=== PATIENT | male | born 1945 | race African-American/Black ===

== ENCOUNTER 2016-09-24 10:35 | Emergency (ER) | payer MEDICARE, OTHER ==
[~2016-09-24] VITALS: Ht 172.7 cm; Wt 78.0 kg
[~2016-09-24 10:35] MED LIST: ASPI81TA2 PO; ATEN25TA PO; BENA5TAB2 PO; HYDR12.5 PO
[2016-09-24] MEDS ORDERED: IV NS 0.9% 1,000 ML ONE (11:14)
[2016-09-24] MEDS ORDERED: IV SET PRIMARY 1 EA INFUS.SET MC ONE (11:14)
[2016-09-24 11:17] LABS: BASOPHILS % (AUTO) 0.6 % (0.0-2.0); DIFF TOTAL % 100 %; EOSINOPHILS # (AUTO) 0.2 /CMM (0.0-0.7); EOSINOPHILS % (AUTO) 5.3 % (0.0-6.0); HEMATOCRIT 47 % (39-51); HEMOGLOBIN 15.8 g/dL (13.5-17.5); LYMPHOCYTES # (AUTO) 0.8 /CMM (0.8-4.8); LYMPHOCYTES % (AUTO) 20.2 % (20.0-44.0); MEAN CORPUSCULAR HEMOGLOBIN 31 PG (26.0-33.0); MEAN CORPUSCULAR HGB CONC 34 g/dl (31.0-36.0); MEAN CORPUSCULAR VOLUME 93 fL (80-96); MONOCYTES # (AUTO) 0.4 /CMM (0.1-1.30); MONOCYTES % (AUTO) 9.2 % (2.0-12.0); NEUTROPHILS # (AUTO) 2.5 /CMM (1.8-8.9); NEUTROPHILS % (AUTO) 64.7 % (43.0-81.0); PLATELET COUNT (AUTO) 193 /CMM (150-450); RED BLOOD CELL COUNT(AUTO) 5.07 MIL/uL (4.5-6.0); WHITE BLOOD COUNT (AUTO) 3.9 K/uL (4.3-11.0)
[2016-09-24 11:19] LABS: KETONES,URINE Negative (NEGATIVE); LEUKOCYTE ESTERASE ,URINE Negative (NEGATIVE)
[2016-09-24 11:21] LABS: ADD UA MICROSCOPIC YES
[2016-09-24 11:26] LABS: ANION GAP 10 (5-14); CALCIUM, SERUM 8.8 mg/dL (8.5-10.1); CARBON DIOXIDE 30 mmol/L (21-32); CHLORIDE 105 mmol/L (98-107); CREATININE 1.1 mg/dL (0.6-1.3); GLUCOSE 126 mg/dL (74-106); POTASSIUM 3.8 mmol/L (3.5-5.1); SODIUM SERUM 142 mmol/L (136-145); UREA NITROGEN, BLOOD 16 mg/dL (7-18)
[2016-09-24 11:30] LABS: ADD URINE CULTURE NO; RBC,URINE 0-2 /HPF (0-2); WBC,URINE 0-2 /HPF (0-3)
[2016-09-24] MEDS ORDERED: IV NS 0.9% 1,000 ML BAG IV ONE (11:30)
[2016-09-24 11:33] LABS: ALANINE AMINOTRANSFERASE 32 U/L (12-78); ALBUMIN 3.9 g/dL (3.4-5.0); ASPARTATE AMINOTRANSFERASE 35 U/L (15-37); BILIRUBIN,DIRECT 0.1 mg/dL (0.0-0.2); BILIRUBIN,TOTAL 0.6 mg/dL (0.2-1.0); TOTAL PROTEIN, SERUM 7.4 g/dL (6.4-8.2)
[2016-09-24 11:34] LABS: TROPONIN I < 0.017 ng/mL (0.00-0.056)
[2016-09-24 11:35] LABS: INDIRECT BILIRUBIN 0.5 mg/dL (0.0-1.1)
[2016-09-24 13:35] VITALS: BP 132/82
== END 2016-09-24 13:36 | disposition home or self-care (01) ==
LOC: ER 10:37
DX: I49.3 Ventricular premature depolarization (principal); E86.0 Dehydration; R42 Dizziness and giddiness; I10 Essential (primary) hypertension; Z79.82 Long term (current) use of aspirin; Z86.73 Personal history of transient ischemic attack (TIA), and cerebral infarction without residual deficits
CPT/HCPCS: 36415; 71010; 80048; 80076; 81001; 83690; 83735; 84484; 85025; 93005; 96360; 99285; A4606; J7030; 81000-TC; Z7610

== ENCOUNTER 2016-12-02 00:19 | Emergency (ER) | payer MEDICARE, OTHER ==
[~2016-12-02] VITALS: Ht 172.7 cm; Wt 78.0 kg
[2016-12-02 00:29] VITALS: BP 135/95
--- NOTE | 2016-12-02 00:50 | NUR ---
CLEO CHRISTOPHER MD AT BED SIDE FOR EVAL
[2016-12-02] MEDS ORDERED: PSEUDOEPHEDRINE HCL 30 MG TABLET PO ONE (01:00)
[2016-12-02] MEDS ORDERED: PSEUDOEPHEDRINE HCL 30 MG TABLET ONE (01:08)
== END 2016-12-02 01:30 | disposition home or self-care (01) ==
LOC: ER 00:21
DX: J06.9 Acute upper respiratory infection, unspecified (principal); R07.89 Other chest pain; R60.1 Generalized edema; I10 Essential (primary) hypertension; Z86.73 Personal history of transient ischemic attack (TIA), and cerebral infarction without residual deficits; Z79.82 Long term (current) use of aspirin
CPT/HCPCS: A4606; Z7610

== ENCOUNTER 2017-08-17 23:32 | Emergency (ER) | payer MEDICARE, MEDICAID ==
[~2017-08-17] VITALS: Ht 172.7 cm; Wt 78.0 kg
[~2017-08-17 23:32] MED LIST changes: +ASPI-1169 PO; -ASPI81TA2 PO
--- NOTE | 2017-08-18 00:09 | NUR ---
PT AMBULATORY TO ER BED 6. PT BIB SELF C/O COUGH/CONGESTION X 3 DAYS. PT PLACED ON INCIDENT RESPONSE SPECIALIST. VSS/RESP EVEN UNLABORED/NAD NOTED/SKIN WARM AND DRY/DENIES N-V-D/AOX4. AWAITING MD DEVRIES.
--- NOTE | 2017-08-18 00:38 | NUR ---
XRAY AT BEDSIDE.
--- NOTE | 2017-08-18 01:15 | NUR ---
AT BEDSIDE SPEAKING WITH PT.
--- NOTE | 2017-08-18 01:28 | NUR ---
Patient discharged to home in stable condition. Written and verbal after care instructions given. Patient verbalizes understanding of instruction. Patient ambulatory with a steady gait.
[2017-08-18 01:29] VITALS: BP 137/83
== END 2017-08-18 01:29 | disposition home or self-care (01) ==
LOC: ER 23:39
DX: J06.9 Acute upper respiratory infection, unspecified (principal); I10 Essential (primary) hypertension; Z86.73 Personal history of transient ischemic attack (TIA), and cerebral infarction without residual deficits; Z79.82 Long term (current) use of aspirin
CPT/HCPCS: 71045; 99283; A4606; Z7610

== ENCOUNTER 2017-10-10 17:39 | Inpatient (IN) | payer MEDICAID, MEDICARE ==
[~2017-10-10] VITALS: Ht 177.8 cm; Wt 78.9 kg
[~2017-10-10 17:39] MED LIST changes: -BENA5TAB2 PO; +BENA5TAB5 PO
--- NOTE | 2017-10-10 17:40 | NUR ---
PT CALLED TO [facility], PT NOT IN WAITING ROOM
--- NOTE | 2017-10-10 17:40 | NUR ---
Weakness and blurry vision x 2 hours PASTORAL COUNSELOR, nad noted, vss, resp even and unlabored, pt was put on monitor and hospital md varghese at bs.
[2017-10-10 18:27] LABS: BASOPHILS # (AUTO) 0.2 /CMM (0.0-0.2); BASOPHILS % (AUTO) 4.2 % (0.0-2.0); EOSINOPHILS % (AUTO) 2.6 % (0.0-6.0); HEMATOCRIT 50 % (39-51); LYMPHOCYTES % (AUTO) 22.2 % (20.0-44.0); MEAN CORPUSCULAR HGB CONC 34 g/dl (31.0-36.0); MEAN CORPUSCULAR VOLUME 92 fL (80-96); MONOCYTES # (AUTO) 0.4 /CMM (0.1-1.30); MONOCYTES % (AUTO) 9.5 % (2.0-12.0); NEUTROPHILS # (AUTO) 2.8 /CMM (1.8-8.9); NEUTROPHILS % (AUTO) 61.5 % (43.0-81.0); PLATELET COUNT (AUTO) 228 /CMM (150-450); RDW COEFFICIENT OF VARIATION 13.1 (11.5-15.0); RED BLOOD CELL COUNT(AUTO) 5.36 MIL/uL (4.5-6.0); WHITE BLOOD COUNT (AUTO) 4.5 K/uL (4.3-11.0)
--- NOTE | 2017-10-10 18:27 | NUR ---
IV INSERTED, LAC 16 GAUGE, BLOOD DRAWN, URINE COLLECTED, SENT TO LAB.
[2017-10-10] MEDS ORDERED: IV NS 0.9% 500 ML BAG IV ONE (18:30)
[2017-10-10] MEDS ORDERED: CARV3.122 PO (18:31)
[2017-10-10] MEDS ORDERED: BENA20TA9 PO (18:31)
[2017-10-10] MEDS ORDERED: FOLI1TAB16 PO (18:31)
[2017-10-10] MEDS ORDERED: CHOL100044 PO (18:31)
[2017-10-10] MEDS ORDERED: SULI150T PO (18:31)
[2017-10-10] MEDS ORDERED: SIMV20TA6 PO (18:31)
[2017-10-10] MEDS ORDERED: AMLO10TA6 PO (18:31)
[2017-10-10] MEDS ORDERED: OXYB10TA PO (18:31)
[2017-10-10 18:39] LABS: CALCIUM, SERUM 9.8 mg/dL (8.5-10.1); CARBON DIOXIDE 28 mmol/L (21-32); CHLORIDE 101 mmol/L (98-107); CREATININE 1.7 mg/dL (0.6-1.3); GLUCOSE 130 mg/dL (74-106); POTASSIUM 3.7 mmol/L (3.5-5.1); SODIUM SERUM 139 mmol/L (136-145); UREA NITROGEN, BLOOD 10 mg/dL (7-18)
[2017-10-10 18:39] LABS: APPEARANCE,URINE Clear (CLEAR); BILIRUBIN,URINE Negative (NEGATIVE); BLOOD, URINE Trace-lysed Ery/uL (NEGATIVE); COLOR,URINE Yellow (YELLOW); KETONES,URINE Negative (NEGATIVE); LEUKOCYTE ESTERASE ,URINE Negative (NEGATIVE); NITRITE, URINE Negative (NEGATIVE); PH,URINE 8.5 (5.0-8.0); PROTEIN,URINE 30 mg/dl (NEGATIVE); UGLUCOSE Negative (NEGATIVE); UROBILINOGEN,URINE 0.2 EU/dL (0.2)
[2017-10-10 18:44] LABS: ALANINE AMINOTRANSFERASE 33 U/L (12-78); ALBUMIN 4.1 g/dL (3.4-5.0); ALKALINE PHOSPHATASE 98 U/L (46-116); ASPARTATE AMINOTRANSFERASE 25 U/L (15-37); BILIRUBIN,DIRECT 0.2 mg/dL (0.0-0.2); BILIRUBIN,TOTAL 0.7 mg/dL (0.2-1.0)
[2017-10-10 18:47] LABS: TROPONIN I < 0.017 ng/mL (0.00-0.056)
--- NOTE | 2017-10-10 18:50 | NUR ---
PT TO CTSCAN.
[2017-10-10 18:57] LABS: BACTERIA,URINE Few /HPF (None Seen); SQUAMOUS EPITHELIAL CELL,UR Few /HPF (None Seen); URINE AMORPHOUS URATE Rare /HPF (None Seen)
[2017-10-10 18:58] LABS: MUCUS,URINE Few /LPF (None Seen)
--- NOTE | 2017-10-10 19:02 | NUR ---
PT REFUSING CXR1V, PT NOT HAVING DIFFICULTY BREATHING OR CP, CONCERNED ABOUT UNNECESSARY RADIATION EXPOSURE. KAYLA 190
--- NOTE | 2017-10-10 20:55 | NUR ---
PT REFUSED CXR AT THIS TIME. RISK AND BENEFITS EXPLAINED X3. PT STRONGLY REFUSED. DR. CHRISTOPHER MADE AWARE
[2017-10-10] MEDS ORDERED: Z GUARD REMEDY 2 OZ OINT TP PRN (21:30)
[2017-10-10] MEDS ORDERED: ONDANSETRON HCL/PF 4 MG/2 ML VIAL IVP PRN (21:30)
[2017-10-10 21:40] VITALS: BP 133/77
[2017-10-10] MEDS: IV NS 0.9% 1,000 ML IV PRN (21:42)
--- NOTE | 2017-10-10 22:52 | NUR ---
RN NOTES RECEIVE PT FROM [facility]IA [facility] AT 2120, PT A/O X 4, PT HAS A CANE CAN ABLE TO WALK TO THE TOILET. HEAD TO TOE ASSESSMENT IS DONE SKIN IS INTACT, NO COMPLAINS OF CHEST PAIN. NO S/S OF DISTRESS, STABLE, SAFETY MEASURES IN PLACE, CALL LIGHT WITHIN REACH, WILL CONTINUE TO MONITOR.
--- NOTE | 2017-10-10 23:40 | NUR ---
PAGED HOSPITALIST SPOKE TO DR. CECY AKINS RELAYED CRITICAL LAB VALUE OF TROPONIN 1.[address] CECY AKINS START HEPARIN DRIP ACS AND EKG NOTED AND CARRIED OUT READ BACK AND VERIFIED ORDERS.
[2017-10-11] VITALS: BP 127/77
[2017-10-11] MEDS ORDERED: HEPARIN SODIUM, PORCINE 5000 UNITS/1 ML VIAL IV ONE (00:30)
--- NOTE | 2017-10-11 00:31 | NUR ---
STARTING BOLUS PER PROTOCOL
[2017-10-11] MEDS ORDERED: HEPARIN INFUSION/D5W 500 ML IV ONE (00:32)
[2017-10-11] MEDS: HEPARIN INFUSION/D5W 500 ML IV PRN (00:38)
--- NOTE | 2017-10-11 00:38 | NUR ---
STARTED HEPARIN DRIP PER PROTOCOL
[2017-10-11 04:24] VITALS: BP 124/69
--- NOTE | 2017-10-11 06:29 | NUR ---
CLIENT RENEWAL SPECIALIST NOTES ASLEEP COMFORTABLY IN BED AND EASILY AWAKEN, SEMI FOWLERS POSITION. NOT IN RESPIRATORY DISTRESS. TOLERATING ROOM AIR 98% STABLE CONDITION. A/O X4, NO COMPLAINS OF PAIN. AFEBRILE. NO ACUTE CHANGES THROUGHOUT THE SHIFT. PT KEPT CLEAN AND DRY AND COMFORT. NURSING CARE RENDERED. NEEDS ATTENDED AND ANTICIPATED. ON LOW BED TO ENSURE SAFETY, CALL LIGHT WITHIN REACH, WILL ENDORSE TO THE NEXT SHIFT CONTINUE PLAN OF CARE. PT ON TELE WITH READING OF SR 61'S WITH 1ST DEGREE AV BLOCK CECY AKINS, ACETYLENE TORCH OPERATOR MADE AWRE
[2017-10-11 06:33] LABS: BASOPHILS % (AUTO) 0.4 % (0.0-2.0); EOSINOPHILS % (AUTO) 4.7 % (0.0-6.0); HEMATOCRIT 42 % (39-51); HEMOGLOBIN 14.5 g/dL (13.5-17.5); LYMPHOCYTES # (AUTO) 1.4 /CMM (0.8-4.8); LYMPHOCYTES % (AUTO) 29.1 % (20.0-44.0); MEAN CORPUSCULAR HGB CONC 35 g/dl (31.0-36.0); MEAN CORPUSCULAR VOLUME 93 fL (80-96); MONOCYTES # (AUTO) 0.6 /CMM (0.1-1.30); MONOCYTES % (AUTO) 12.4 % (2.0-12.0); NEUTROPHILS # (AUTO) 2.5 /CMM (1.8-8.9); NEUTROPHILS % (AUTO) 53.4 % (43.0-81.0); PLATELET COUNT (AUTO) 185 /CMM (150-450); RED BLOOD CELL COUNT(AUTO) 4.53 MIL/uL (4.5-6.0); WHITE BLOOD COUNT (AUTO) 4.7 K/uL (4.3-11.0)
--- NOTE | 2017-10-11 06:40 | NUR ---
AWAITING APTT RESULT WILL ENDORSE TO THE NEXT SHIFT TO ADJUST HEPARIN DRIP PER PROTOCOL
[2017-10-11 06:52] LABS: ALANINE AMINOTRANSFERASE 26 U/L (12-78); ALBUMIN 3.2 g/dL (3.4-5.0); ALKALINE PHOSPHATASE 79 U/L (46-116); ASPARTATE AMINOTRANSFERASE 37 U/L (15-37); BILIRUBIN,TOTAL 0.6 mg/dL (0.2-1.0); CALCIUM, SERUM 8.4 mg/dL (8.5-10.1); CARBON DIOXIDE 29 mmol/L (21-32); CHLORIDE 107 mmol/L (98-107); GLUCOSE 79 mg/dL (74-106); PHOSPHORUS 7.9 mg/dL (2.5-4.9); POTASSIUM 3.4 mmol/L (3.5-5.1); SODIUM SERUM 144 mmol/L (136-145); TOTAL PROTEIN, SERUM 6.3 g/dL (6.4-8.2); UREA NITROGEN, BLOOD 10 mg/dL (7-18)
[2017-10-11 06:57] LABS: CHOLESTEROL 112 mg/dL (<200); HDL CHOLESTEROL 51 mg/dL (40-60); LDL 72 mg/dL (0-99); THYROID STIMULATING HORMONE 0.915 uIU/mL (0.358-3.74); TRIGLYCERIDES 24 mg/dL (30-150)
[2017-10-11 07:27] LABS: INR 1.14 (0.87-1.13)
--- NOTE | 2017-10-11 08:00 | NUR ---
APTT IS 72. PER PROTOCOL,ADJUSTMENTS MADE FROM HEPARIN 1185 UNITS/HR (23.7 MLS/HR) TO 1085 UNITS/HR (21.7MLS/HR).CECY,PHARMACIST MADE AWARE.ORDERED PT-INR AND PTT AT 1400.NOTIFIED DR RICARDO FOR PT'S TROPONIN LEVEL OF 1.435 .
[2017-10-11 08:04] VITALS: BP 163/95
--- NOTE | 2017-10-11 08:05 | NUR ---
OFFICIAL COURT INTERPRETER OPENING NOTES RECEIVED PATIENT IN BED AWAKE, ALERT AND ORIENTED X 4 , ABLE TO MAKE NEEDS KNOWN, VERBALLY RESPONSIVE, IV ON LEFT AC INTACT AND PATENT, NO REDNESS NO INFILTRATION TO SITE. ON HEPARIN DRIP RUNNING ORDERED, IVF FLOWING PROPERLY ORDERED, ON SCREED OPERATOR 63 BPM.DENIES ANY COMPLAINTS OF PAIN AND DISCOMFORT THIS TIME.SAFETY MEASURE IN PLACE URINAL AT BEDSIDE, CALL LIGHT KEPT WITHIN REACH.
[2017-10-11] MEDS: BENAZEPRIL HCL 20 MG TABLET PO SCH ×2 (08:31→18:25)
[2017-10-11] MEDS: OXYBUTYNIN CHLORIDE ER 5 MG TAB PO SCH (08:31)
[2017-10-11] MEDS: FOLIC ACID 1 MG TABLET PO SCH (08:31)
[2017-10-11] MEDS: CHOLECALCIFEROL 1,000 UNIT TABLET (VIT D3) PO SCH (08:32)
[2017-10-11] MEDS: AMLODIPINE BESYLATE 10 MG TABLET PO SCH (08:32)
[2017-10-11] MEDS: CARVEDILOL 12.5 MG TABLET PO SCH ×2 (08:47→21:13)
[2017-10-11] MEDS ORDERED: ASPIRIN 81 MG TAB.CHEW PO SCH (09:00)
[2017-10-11] MEDS ORDERED: CARVEDILOL 3.125 MG TABLET PO SCH (09:00)
--- NOTE | 2017-10-11 09:00 | NUR ---
PT WAS BROUGHT DOWN FOR CT BRAIN WITH CONTRAST PROCEDURE WITH STABLE V/S.PT REMAINS NPO.FOR CT ANGIOGRAM LATER IN PM CONSENTS HAS BEEN SIGNED.
--- NOTE | 2017-10-11 10:00 | NUR ---
PT WAS BROUGHT BACK TO HIS ROOM POST CT BRAIN PROCEDURE.REMAINS ON NPO DENYING ANY PAIN OR DISTRESS.
[2017-10-11 12:00] VITALS: BP 122/83
[2017-10-11] MEDS ORDERED: POTASSIUM CHLORIDE 20 MEQ TAB.PRT.SR PO SCH (12:30)
[2017-10-11] MEDS: IV NS 0.9% 1,000 ML IV PRN (13:31)
[2017-10-11] MEDS: POTASSIUM CL. PREMIX PERIPHER. 50 ML IV SCH ×2 (13:32→15:39)
--- NOTE | 2017-10-11 13:49 | NUR ---
STARTED ADMINISTERING POTASSIUM IV FIRST BAG AND PT IS C/O IV DISCOMFORT ON RT AC.ADJUSTED POTASSIUM IV INFUSION ACCORDING TO PT'S COMFORT.
[2017-10-11 15:10] LABS: CREATININE 0.9 mg/dL (0.6-1.3)
[2017-10-11 15:35] LABS: INR 1.13 (0.87-1.13)
--- NOTE | 2017-10-11 15:48 | NUR ---
CHECKED PT'S LATEST PTT:47 PT 11.8 INR 1.13 NO CHANGE IN PRESENT INFUSION.
[2017-10-11] MEDS ORDERED: CLOPIDOGREL BISULFATE 75 MG TABLET PO ONE (16:30)
[2017-10-11 16:43] VITALS: BP 133/81
[2017-10-11] MEDS ORDERED: IOHEXOL-350 100 ML VIAL IV ONE (17:22)
[2017-10-11] MEDS ORDERED: IV NS 0.9% 250 ML IV ONE (17:22)
--- NOTE | 2017-10-11 17:30 | NUR ---
RN MS NOTES PATIENT NPO STATUS , PATIENT WAS PICKED UP FOR CT ANGIOGRAM PROCEDURE.
[2017-10-11] MEDS: SIMVASTATIN 20 MG TABLET PO SCH (18:23)
--- NOTE | 2017-10-11 18:43 | NUR ---
AUSTIN MS CLOSING NOTES, PATIENT BROUGHT BACK TO UNIT IN STABLE CONDITION AT 1812, AWAKE ALERT AND VERBALLY RESPONSIVE, ASSISTED TO BATHROOM, VITAL SIGNS TAKEN WITHIN NORMAL LIMITS, ON WIND UP OPERATOR 53BPM, NO SIGNS OR SYMPTOMS OF PAIN OR DISCOMFORT, NO COMPLAINTS OF CHEST PAIN, IV INTACT AND PATENT, ON HEPARIN DRIP INFUSING WELL PER PROTOCOL, PATIENT EATING TOLERATING WELL, FLUIDS OFFERED SAFETY MEASURES IN PLACE CALL LIGHT KEPT WITHIN REACH. 1842 PATIENT IN BED AWAKE ALERT AND RESPONSIVE, NO COMPLAINTS OF PAIN OR DISCOMFORT , SAFETY MEASURES IN PLACE, CALL LIGHT WITHIN REACH. Addendum: 10/11/17 at 1856 by ISAURO MIGUEL RN AUSTIN KENNEDY
--- NOTE | 2017-10-11 19:30 | NUR ---
RN NOTES RECEIVED PATIENT IN BED AWAKE, AO X 3, ABLE TO MAKE NEEDS KNOWN WITH CLEAR SPEECH. NO ACUTE DISTRESS NOTED. DENIES ANY PAIN AT THIS TIME. RIGHT SIDED WEAKNESS NOTED. TELE READING SINUS RHYTHM HR 66. PATIENT IV SITES PATENT, INTACT; HEPARIN DRIP INFUSING ORDERED (REVIEWED WITH OUTGOING NURSE); NF IVF INFUSING ORDERED. NO SIGNS OF BLEEDING NOTED. SAFETY REMINDERS GIVEN. STROKE EDUCATION GIVEN. PATIENT VERBALIZED UNDERSTANDING. ON LOW BED WITH BILATERAL UPPER SIDE RAILS UP. CALL ANDRADE WITHIN EASY REACH. WILL CONTINUE TO MONITOR.
[2017-10-11 20:00] VITALS: BP 146/89
[2017-10-11 22:48] LABS: INR 1.12 (0.87-1.13)
[2017-10-12] VITALS: BP 142/84
[2017-10-12] MEDS: HEPARIN INFUSION/D5W 500 ML IV PRN (02:14)
[2017-10-12] MEDS: ACETAMINOPHEN 325 MG TABLET PO PRN ×3 (02:19→22:15)
[2017-10-12] MEDS: IV NS 0.9% 1,000 ML IV PRN (02:20)
[2017-10-12 04:00] VITALS: BP_SYST 144; BP_DIAS 74; BP_DIAS 94
--- NOTE | 2017-10-12 06:00 | NUR ---
RN NOTES PATIENT ASLEEP, EASILY AROUSABLE. RESPIRATIONS EVEN. NO SIGNS OF PAIN NOTED. DUE MEDS GIVEN WITH NO ASE NOTED. NEEDS ATTENDED. SAFETY PRECAUTIONS AND COMFORT MEASURES IN PLACE. WILL GIVE REPORT TO DAY SHIFT FOR CONTINUITY OF CARE.
[2017-10-12 06:36] LABS: ALANINE AMINOTRANSFERASE 27 U/L (12-78); ALBUMIN 3.3 g/dL (3.4-5.0); ALKALINE PHOSPHATASE 82 U/L (46-116); BILIRUBIN,TOTAL 0.4 mg/dL (0.2-1.0); CALCIUM, SERUM 8.7 mg/dL (8.5-10.1); CARBON DIOXIDE 24 mmol/L (21-32); CHLORIDE 103 mmol/L (98-107); CREATININE 0.8 mg/dL (0.6-1.3); GLUCOSE 89 mg/dL (74-106); MAGNESIUM 2.7 mg/dL (1.8-2.4); PHOSPHORUS 3.7 mg/dL (2.5-4.9); SODIUM SERUM 138 mmol/L (136-145); TOTAL PROTEIN, SERUM 6.6 g/dL (6.4-8.2); UREA NITROGEN, BLOOD 10 mg/dL (7-18)
[2017-10-12 06:40] LABS: BASOPHILS % (AUTO) 0.7 % (0.0-2.0); EOSINOPHILS % (AUTO) 7.8 % (0.0-6.0); HEMATOCRIT 45 % (39-51); HEMOGLOBIN 15.4 g/dL (13.5-17.5); LYMPHOCYTES % (AUTO) 24.6 % (20.0-44.0); MEAN CORPUSCULAR HGB CONC 35 g/dl (31.0-36.0); MEAN CORPUSCULAR VOLUME 93 fL (80-96); MONOCYTES # (AUTO) 0.5 /CMM (0.1-1.30); MONOCYTES % (AUTO) 12.5 % (2.0-12.0); NEUTROPHILS # (AUTO) 2.3 /CMM (1.8-8.9); NEUTROPHILS % (AUTO) 54.4 % (43.0-81.0); PLATELET COUNT (AUTO) 195 /CMM (150-450); RDW COEFFICIENT OF VARIATION 13.4 (11.5-15.0); WHITE BLOOD COUNT (AUTO) 4.2 K/uL (4.3-11.0)
[2017-10-12 06:51] LABS: ASPARTATE AMINOTRANSFERASE 19 U/L (15-37)
[2017-10-12 06:52] LABS: INR 1.1 (0.87-1.13)
--- NOTE | 2017-10-12 07:10 | NUR ---
RN NOTES PT IS LAYING DOWN IN BED, RESTING COMFORTABLY. PT ON RA, RESPIRATIONS ARE EVEN AND UNLABORED. IV ON LAC INTACT AND SL, AND RAC INTACT AND RUNNING NS @ 100ML/HR AND HEPARIN DRIP, TITRATED ORDERED. SAFETY MEASURES ARE IN PLACE, CALL LIGHT IS IN REACH. WILL CONTINUE TO MONITOR.
[2017-10-12 08:00] VITALS: BP 140/93
[2017-10-12] MEDS: OXYBUTYNIN CHLORIDE ER 5 MG TAB PO SCH (08:21)
[2017-10-12] MEDS: CARVEDILOL 12.5 MG TABLET PO SCH ×2 (08:21→20:28)
[2017-10-12] MEDS: FOLIC ACID 1 MG TABLET PO SCH (08:21)
[2017-10-12] MEDS: BENAZEPRIL HCL 20 MG TABLET PO SCH ×2 (08:21→16:59)
[2017-10-12] MEDS: CLOPIDOGREL BISULFATE 75 MG TABLET PO SCH (08:21)
[2017-10-12] MEDS: AMLODIPINE BESYLATE 10 MG TABLET PO SCH (08:21)
[2017-10-12] MEDS: CHOLECALCIFEROL 1,000 UNIT TABLET (VIT D3) PO SCH (08:22)
[2017-10-12] MEDS: hydrALAZINE HCL 50 MG TABLET PO SCH ×3 (09:17→16:59)
[2017-10-12] MEDS: POTASSIUM CHLORIDE 20 MEQ TAB.PRT.SR PO SCH ×3 (09:17→11:07)
[2017-10-12 14:03] LABS: INR 1.1 (0.87-1.13)
[2017-10-12 16:00] VITALS: BP 137/79
[2017-10-12] MEDS: SIMVASTATIN 20 MG TABLET PO SCH (17:01)
--- NOTE | 2017-10-12 18:41 | NUR ---
RN NOTES PT IS SITTING UP IN BED, AWAKE AND ALERT. PT ON RA, RESPIRATIONS ARE EVEN AND UNLABORED, O2SAT 100%. IV ON RAC INTACT AND SL, PER PT REQUEST. ALL MEDS WERE GIVEN ORDERED AND PT NEEDS MET. SAFETY MEASURES ARE IN PLACE, CALL LIGHT IS IN REACH. WILL ENDORSE TO GAS PUMPING STATION SUPERVISOR RN FOR CONTINUITY OF CARE.
--- NOTE | 2017-10-12 19:15 | NUR ---
SHEAR SETTER NOTES: RECEIVED PT IN BED AND IS AWAKE AT THIS TIME. PT IS A/OX4. PT ON TELE BOX. PT HAS IV ON R AC #18G AND IS PATENT AND INTACT. PT TO BE CONNECTED TO IV FLUIDS AT NS AT 100ML/HR. CALL LIGHT WITHIN PT'S REACH. BED KEPT IN LOW, LOCKED POSITION, AND SIDE RAILS X 2UP. WILL CONTINUE TO MONITOR PT.
[2017-10-12 20:00] VITALS: BP 134/75
--- NOTE | 2017-10-12 22:16 | NUR ---
RN NOTES: PT COMPLAINING OF MILD HIP PAIN. PT WAS ADMINISTERED TYLENOL 650MG PO. WILL CONTINUE TO MONITOR PT.
[2017-10-13] VITALS: BP 101/70
[2017-10-13 04:00] VITALS: BP 135/87
[2017-10-13] MEDS: IV NS 0.9% 1,000 ML IV PRN (04:16)
--- NOTE | 2017-10-13 06:44 | NUR ---
CABLE TV INSTALLER CLOSING NOTES: ALL NEEDS WERE ATTENDED AND ANTICIPATED FOR. PT ON ROOM AIR AND TOLERATING WELL. PT ON TELE BOX AND READING SHOWS SR WITH FIRST DEGREE AVB WITH PVCS HR 64. PT HAS IV ON R A#18G AND IS BEING INFUSED WITH NS AT 100ML/HR. CALL LIGHT WITHIN PT'S REACH. BED KEPT IN LOW, LOCKED POSITION, AND SIDE RAILS X 2UP. WILL ENDORSE TO AM NURSE FOR DARREN.
[2017-10-13 06:57] LABS: BASOPHILS % (AUTO) 0.6 % (0.0-2.0); EOSINOPHILS % (AUTO) 6.2 % (0.0-6.0); HEMATOCRIT 45 % (39-51); HEMOGLOBIN 15.6 g/dL (13.5-17.5); LYMPHOCYTES # (AUTO) 0.9 /CMM (0.8-4.8); LYMPHOCYTES % (AUTO) 24.1 % (20.0-44.0); MEAN CORPUSCULAR HGB CONC 35 g/dl (31.0-36.0); MEAN CORPUSCULAR VOLUME 92 fL (80-96); MONOCYTES # (AUTO) 0.5 /CMM (0.1-1.30); MONOCYTES % (AUTO) 13.3 % (2.0-12.0); NEUTROPHILS % (AUTO) 55.8 % (43.0-81.0); PLATELET COUNT (AUTO) 202 /CMM (150-450); RDW COEFFICIENT OF VARIATION 13.4 (11.5-15.0); TROPONIN I 0.378 ng/mL (0.00-0.056); WHITE BLOOD COUNT (AUTO) 3.7 K/uL (4.3-11.0)
[2017-10-13 07:09] LABS: ALANINE AMINOTRANSFERASE 26 U/L (12-78); ALBUMIN 3.3 g/dL (3.4-5.0); ALKALINE PHOSPHATASE 80 U/L (46-116); ASPARTATE AMINOTRANSFERASE 25 U/L (15-37); BILIRUBIN,TOTAL 0.5 mg/dL (0.2-1.0); CALCIUM, SERUM 8.7 mg/dL (8.5-10.1); CARBON DIOXIDE 25 mmol/L (21-32); CHLORIDE 106 mmol/L (98-107); CREATININE 0.9 mg/dL (0.6-1.3); GLUCOSE 87 mg/dL (74-106); MAGNESIUM 1.8 mg/dL (1.8-2.4); PHOSPHORUS 3.4 mg/dL (2.5-4.9); POTASSIUM 3.5 mmol/L (3.5-5.1); SODIUM SERUM 140 mmol/L (136-145); TOTAL PROTEIN, SERUM 6.6 g/dL (6.4-8.2); UREA NITROGEN, BLOOD 9 mg/dL (7-18)
--- NOTE | 2017-10-13 07:15 | NUR ---
RN NOTES PT IS LAYING DOWN IN BED, SLEEPING COMFORTABLY. PT ON RA, RESPIRATIONS ARE EVEN AND UNLABORED. IV ON RAC INTACT AND RUNNING NS @ 100ML/HR. SAFETY MEASURES ARE IN PLACE, CALL LIGHT IS IN REACH. WILL CONTINUE TO MONITOR.
[2017-10-13 08:00] VITALS: BP 151/86
[2017-10-13] MEDS: hydrALAZINE HCL 50 MG TABLET PO SCH ×3 (08:06→16:51)
[2017-10-13] MEDS: BENAZEPRIL HCL 20 MG TABLET PO SCH ×2 (08:06→16:51)
[2017-10-13] MEDS: CLOPIDOGREL BISULFATE 75 MG TABLET PO SCH (08:06)
[2017-10-13] MEDS: OXYBUTYNIN CHLORIDE ER 5 MG TAB PO SCH (08:06)
[2017-10-13] MEDS: FOLIC ACID 1 MG TABLET PO SCH (08:06)
[2017-10-13] MEDS: CARVEDILOL 12.5 MG TABLET PO SCH ×2 (08:06→20:55)
[2017-10-13] MEDS: AMLODIPINE BESYLATE 10 MG TABLET PO SCH (08:06)
[2017-10-13] MEDS: CHOLECALCIFEROL 1,000 UNIT TABLET (VIT D3) PO SCH (08:07)
--- NOTE | 2017-10-13 10:00 | NUR ---
RN NOTES SPOKE WITH DR. RICARDO FOR PREPARATION TO HEART CATH IN THE AM. MD ORDERED D5NS @100ML/HR TO START AT MIDNIGHT. PT NPO EXCEPT MEDS AT MIDNIGHT. KEEP IV SITE. WILL ENDORSE TO STARCH FACTORY LABORER RN
[2017-10-13] MEDS: ACETAMINOPHEN 325 MG TABLET PO PRN ×2 (12:03→18:06)
[2017-10-13 16:00] VITALS: BP 127/70
[2017-10-13] MEDS: SIMVASTATIN 20 MG TABLET PO SCH (17:06)
--- NOTE | 2017-10-13 18:50 | NUR ---
RN NOTES PT IS SITTING UP IN BED, ALERT AND ORIENTED. PT ON RA, RESPIRATIONS ARE EVEN AND UNLABORED. IV ON ABDIAZIZ INTACT AND SL. ALL MEDS WERE GIVEN ORDERED AND PT NEEDS MET. SAFETY MEASURES ARE IN PLACE, CALL LIGHT IS IN REACH. WILL ENDORSE TO MEDICAL OFFICE RECEPTIONIST RN FOR CONTINUITY OF CARE.
--- NOTE | 2017-10-13 19:25 | NUR ---
RN OPENING NOTES: RECEIVED PT AND IS AWAKE AT THIS TIME. PT HAS ABDIAZIZ #20G AND IS PATENT AND INTACT. PT INFORMED THAT HE WILL BE NPO EXCEPT MEDS POST MIDNIGHT FOR CARDIAC CATH TO BE DONE TOMORROW. PT ON ROOM AIR AND TOLERATING WELL. CALL LIGHT WITHIN PT'S REACH. BED KEPT IN LOW, LOCKED POSITION, AND SIDE RAILS X 2UP. WILL CONTINUE TO MONITOR PT.
[2017-10-13 20:00] VITALS: BP 135/83
[2017-10-14] MEDS ORDERED: IV D5/ 0.9% NACL 1,000 ML IV ONE
--- NOTE | 2017-10-14 07:03 | NUR ---
RN NOTES: SPOKE WITH DELI ASSOCIATE VERONICA FROM [employer]. CARD ELVIA CANCELLED TODAY D/T MALFUNCTION IN LAB. ALSO SPOKE WITH [facility] DEVELOPMENT CONSULTANT. SHE SAID SHE WILL CONTACT DR. MALIK. DELI ASSOCIATE SAID TO FOLLOW UP AT 0930 AND CALL HER AT [phone]
--- NOTE | 2017-10-14 07:30 | NUR ---
MS RN CLOSING NOTES: ALL NEEDS WERE ATTENDED AND ANTICIPATED FOR. PT ON ROOM AIR AND TOLERATING WELL. PT HAS IV ON ABDIAZIZ #20G AND IS BEING INFUSED WITH D5/0.9%NACL AT 100ML/HR. CALL LIGHT WITHIN PT'S REACH. BED KEPT IN LOW, LOCKED POSITION, AND SIDE RAILS X 2UP. PT REMAINED NPO. ENDORSED TO AM NURSE FOR DARREN.
--- NOTE | 2017-10-14 07:36 | NUR ---
MS/RN OPENING NOTE PATIENT IN BED IN STABLE CONDITION. A/O X 4. NO SIGNS OF ACUTE DISTRESS. NO COMPLAIN OF PAIN OR DISCOMFORT. NPO EXCEPT MEDS SECONDARY TO CARDIAC CATH. PROCEDURE SCHEDULED. ALL NEEDS ATTENDED TO. CALL LIGHT WITH IN REACH. WILL CONTINUE TO MONITOR TO ENSURE SAFETY.
[2017-10-14 08:00] VITALS: BP 140/96
--- NOTE | 2017-10-14 08:30 | NUR ---
MS/RN PLAVIX HELD PLAVIX HELD SECONDARY TO PATIENT SCHEDULE FOR CARDIAC CATH PROCEDURE AT [facility]
[2017-10-14] MEDS: hydrALAZINE HCL 50 MG TABLET PO SCH ×3 (08:54→16:38)
[2017-10-14] MEDS: FOLIC ACID 1 MG TABLET PO SCH (08:54)
[2017-10-14] MEDS: CARVEDILOL 12.5 MG TABLET PO SCH ×2 (08:54→20:12)
[2017-10-14] MEDS: CHOLECALCIFEROL 1,000 UNIT TABLET (VIT D3) PO SCH (08:54)
[2017-10-14] MEDS: OXYBUTYNIN CHLORIDE ER 5 MG TAB PO SCH (08:55)
[2017-10-14] MEDS: CLOPIDOGREL BISULFATE 75 MG TABLET PO SCH (08:55)
[2017-10-14] MEDS: AMLODIPINE BESYLATE 10 MG TABLET PO SCH (08:55)
[2017-10-14] MEDS: BENAZEPRIL HCL 20 MG TABLET PO SCH ×2 (08:55→16:38)
--- NOTE | 2017-10-14 09:35 | NUR ---
MS/RN SEEN BY DR RICARDO PATIENT SEEN BY DR RICARDO. PER DR RICARDO, CARDIAC CATH. PROCEDURE IS CANCEL FOR TODAY, AND OKAY TO START DIET.
--- NOTE | 2017-10-14 13:00 | NUR ---
MS/E COMMERCE MARKETING MANAGER. CARDIAC CATH. PROCEDURE SCHEDULE FOR TOMORROW AT [facility] AT 1:30PM, P/U AT 11AM. NPO POST MIDNIGHT 10/15/17
[2017-10-14 16:00] VITALS: BP 126/62
[2017-10-14] MEDS: SIMVASTATIN 20 MG TABLET PO SCH (16:38)
--- NOTE | 2017-10-14 18:28 | NUR ---
MS/RN CLOSING NOTE PATIENT IN BED IN STABLE CONDITION . A/O X 4. NO SIGNS OF ACUTE DISTRESS. NO COMPLAIN OF PAIN OR DISCOMFORT. ALL NEEDS ATTENDED TO. CALL LIGHT WITHIN REACH. WILL ENDORSE TO NEXT SHIFT FOR CONTINUITY OF CARE.
--- NOTE | 2017-10-14 19:15 | NUR ---
MS RN OPENING NOTES: RECEIVED PT IN BED. PT IS AWAKE. PT A/OX4. ON ROOM AIR AND TOLERATING WELL. NO S/S OF DISTRESS NOTED AT THIS TIME. PT INFORMED THAT CARD CATH IS TOMORROW AND HE WILL NPO POST MIDNIGHT. PT VERBALIZED UNDERSTANDING. PT HAS IV ON ABDIAZIZ #20G AND IS PATENT AND INTACT. CALL LIGHT WITHIN PT'S REACH. BED KEPT IN LOW, LOCKED POSITION, AND SIDE RAILS X 2UP. WILL CONTINUE TO MONITOR PT.
[2017-10-14 20:00] VITALS: BP 131/61
[2017-10-14 20:19] VITALS: BP 131/61
--- NOTE | 2017-10-14 22:03 | NUR ---
MS RN NOTES: INFORMED DR. AKINS THAT PT WANTS TO TAKE A SHOWER TONIGHT. PT DOES NOT WANT A BED BATH. GOT ORDER FOR PT OK TO SHOWER FOR TONIGHT. WILL HAVE INTERNATIONAL PROJECT MANAGER ASSIST WELL.
--- NOTE | 2017-10-15 06:29 | NUR ---
MS RN CLOSING NOTES: ALL NEEDS WERE ATTENDED AND ANTICIPATED FOR. PT ON ROOM AIR AND TOLERATING WELL. IV REMAINS INTACT. CURRENTLY S/L. PT REMAINED NPO POST MIDNIGHT. CALL LIGHT WITHIN PT'S REACH. BED KEPT IN LOW, LOCKED POSITION, AND SIDE RAILS X 2UP. WILL ENDORSE TO AM NURSE FOR DARREN.
--- NOTE | 2017-10-15 07:13 | NUR ---
MS/RN OPENING NOTE PATIENT IN BED IN STABLE CONDITION. A/O X 4. NO SIGNS OF ACUTE DISTRESS. NO COMPLAIN OF PAIN OR DISCOMFORT. NPO EXCEPT MEDS SECONDARY TO CARDIAC CATH. PROCEDURE SCHEDULE TODAY AT [facility]. ALL NEEDS ATTENDED TO. CALL LIGHT WITHIN REACH. WILL CONTINUE TO MONITOR TO ENSURE SAFETY.
[2017-10-15 08:00] VITALS: BP 136/86
[2017-10-15] MEDS: OXYBUTYNIN CHLORIDE ER 5 MG TAB PO SCH (08:23)
[2017-10-15] MEDS: hydrALAZINE HCL 50 MG TABLET PO SCH ×2 (08:23→12:18)
[2017-10-15] MEDS: CARVEDILOL 12.5 MG TABLET PO SCH (08:23)
[2017-10-15] MEDS: AMLODIPINE BESYLATE 10 MG TABLET PO SCH (08:23)
[2017-10-15 08:24] VITALS: BP 136/86
[2017-10-15] MEDS: FOLIC ACID 1 MG TABLET PO SCH (08:24)
[2017-10-15] MEDS: BENAZEPRIL HCL 20 MG TABLET PO SCH (08:24)
[2017-10-15] MEDS: CHOLECALCIFEROL 1,000 UNIT TABLET (VIT D3) PO SCH (08:24)
--- NOTE | 2017-10-15 10:55 | NUR ---
MS/BEEHIVE KILN CHARCOAL BURNER TO [facility] PATIENT TRANSFERRED TO [facility] FOR SCHEDULE CARDIAC CATH. PROCEDURE. A/O X 4. NO SIGNS OF ACUTE DISTRESS. NO COMPLAIN OF PAIN OR DISCOMFORT. DISCHARGE TEACHINGS AND EDUCATION PROVIDED, REGARDING ADMISSION DIAGNOSIS. VERBALIZED UNDERSTANDING. IV LINE RIGHT UPPER ARM GAUGE 20 SL INTACT AND FLUSHING WELL. ALL NEEDS ATTENDED TO. LEFT VIA GURNEY ACCOMPANIED BY 2 PARAMEDICS.
--- NOTE | 2017-10-15 12:18 | NUR ---
MS/RN HYDRALAZINE NON ADMIN HYDRALAZINE NON ADMIN DUE TO PATIENT AT [facility] FOR CARDIAC CATH PROCEDURE.
--- NOTE | 2017-10-15 15:24 | NUR ---
MS/SCALER PACKER PATIENT DISCHARGE TO [facility]. A/O X 4. REPORT GIVEN TO PURNIMA RN FROM [facility] DISCHARGE INSTRUCTIONS AND TEACHINGS PROVIDED, VERBALIZED UNDERSTANDING. MADE AWARE TO FOLLOW UP WITH PRIMARY PHYSICIAN WITHIN A WEEK. LEFT IN STABLE CONDITION ACCOMPANIED BY 2 CITY ASSESSOR.
== END 2017-10-15 15:30 | disposition short-term general hospital (02) | DRG 280 ==
LOC: ER 17:41 → TELE 20:34 → MED 10-13 10:08
PROVIDERS: ADMIT Nurse Practitioner Acute Care; ATTEND Nurse Practitioner Acute Care
DX: I21.4 Non-ST elevation (NSTEMI) myocardial infarction (principal); N17.0 Acute kidney failure with tubular necrosis; I69.351 Hemiplegia and hemiparesis following cerebral infarction affecting right dominant side; N40.0 Benign prostatic hyperplasia without lower urinary tract symptoms; Z79.82 Long term (current) use of aspirin; Z79.899 Other long term (current) drug therapy; I10 Essential (primary) hypertension; I67.2 Cerebral atherosclerosis
CPT/HCPCS: 36415; 70450-TC; 70496-TC; 71045-TC; 75574; 80048-TC; 80053-TC; 80061-TC; 80076-TC; 81000-TC; 82306; 82565-TC; 82962-TC; 83735-TC; 84100-TC; 84439-TC; 84443-TC; 84484-TC; 84520-TC; 85025-TC; 85610-TC; 85730-TC; 87081-TC; 92611-TC; 93307-TC; 93880-TC; A4606; J1644; J3480; J7030; J7040; J7042; J7050; Q9967; Z7610

== ENCOUNTER 2017-10-29 17:36 | Emergency (ER) | payer MEDICAID, MEDICARE ==
[~2017-10-29] VITALS: Ht 172.7 cm; Wt 78.0 kg
[~2017-10-29 17:36] MED LIST changes: +AMLO10TA6 PO; -ATEN25TA PO; +BENA20TA9 PO; -BENA5TAB5 PO; +CARV3.122 PO; +CHOL100044 PO; +FOLI1TAB16 PO; -HYDR12.5 PO; +OXYB10TA PO; +SIMV20TA6 PO; +SULI150T PO
[2017-10-29] MEDS ORDERED: TRAMADOL HCL 50 MG TABLET ONE (18:25)
[2017-10-29] MEDS ORDERED: TRAMADOL HCL 50 MG TABLET PO ONE (18:30)
[2017-10-29 18:35] LABS: BASOPHILS # (AUTO) 0.1 /CMM (0.0-0.2); BASOPHILS % (AUTO) 2.5 % (0.0-2.0); EOSINOPHILS % (AUTO) 3.8 % (0.0-6.0); HEMATOCRIT 45 % (39-51); HEMOGLOBIN 15.3 g/dL (13.5-17.5); LYMPHOCYTES # (AUTO) 0.9 /CMM (0.8-4.8); LYMPHOCYTES % (AUTO) 21.2 % (20.0-44.0); MEAN CORPUSCULAR HGB CONC 34 g/dl (31.0-36.0); MEAN CORPUSCULAR VOLUME 94 fL (80-96); MONOCYTES # (AUTO) 0.5 /CMM (0.1-1.30); MONOCYTES % (AUTO) 12.1 % (2.0-12.0); NEUTROPHILS # (AUTO) 2.8 /CMM (1.8-8.9); NEUTROPHILS % (AUTO) 60.4 % (43.0-81.0); PLATELET COUNT (AUTO) 221 /CMM (150-450); RDW COEFFICIENT OF VARIATION 13.3 (11.5-15.0); RED BLOOD CELL COUNT(AUTO) 4.79 MIL/uL (4.5-6.0); WHITE BLOOD COUNT (AUTO) 4.5 K/uL (4.3-11.0)
[2017-10-29 19:40] VITALS: BP 158/83
== END 2017-10-29 20:03 | disposition home or self-care (01) ==
LOC: ER 17:37
DX: M79.621 Pain in right upper arm (principal); E78.5 Hyperlipidemia, unspecified; I10 Essential (primary) hypertension; Z79.02 Long term (current) use of antithrombotics/antiplatelets; Z79.82 Long term (current) use of aspirin; Z86.718 Personal history of other venous thrombosis and embolism; Z86.73 Personal history of transient ischemic attack (TIA), and cerebral infarction without residual deficits
CPT/HCPCS: 36415; 85025-TC; 93971-TC; A4606; Z7610

== ENCOUNTER 2017-12-25 01:53 | Emergency (ER) | payer MEDICARE, MEDICAID ==
[~2017-12-25] VITALS: Ht 172.7 cm; Wt 78.0 kg
--- NOTE | 2017-12-25 01:53 | NUR ---
ELEVATED BP 141/101 X 2100 TODAY, BENSON NO DIZZINESS, TAKES BENAZEPRIL. BLE SWELLING X5 MONTHS. PT IS HYPERTENSIVE BUT OTHERWISE VSS NAD. A/OX4 ABLE TO MAKE NEEDS KNOWN. WILL CONTINUE TO MONITOR FOR ANY CHANGES DURING THE SHIFT.
--- NOTE | 2017-12-25 01:54 | NUR ---
ER MD AGOSTO AT BEDSIDE FOR EVAL
--- NOTE | 2017-12-25 04:32 | NUR ---
PT COMFORTABLE SLEEPING IN STABLE CONDITION. VSS NAD. EASILY AWOKEN
[2017-12-25 05:39] VITALS: BP 119/77
== END 2017-12-25 05:44 | disposition home or self-care (01) ==
LOC: ER 01:57
DX: I10 Essential (primary) hypertension (principal); E78.5 Hyperlipidemia, unspecified; R53.1 Weakness; Z86.73 Personal history of transient ischemic attack (TIA), and cerebral infarction without residual deficits
CPT/HCPCS: A4606; Z7610

== ENCOUNTER 2018-01-21 20:40 | Emergency (ER) | payer MEDICARE, MEDICAID ==
[~2018-01-21] VITALS: Ht 172.7 cm; Wt 78.0 kg
[~2018-01-21 20:40] MED LIST changes: +AMLO10TA2 PO; -AMLO10TA6 PO; +BENA20TA2 PO; -BENA20TA9 PO
--- NOTE | 2018-01-21 20:52 | NUR ---
BIB SELF COMPLAINING OF HEADACHE AND GENERAL WEAKNESS X1 WEEK ABLE TO AMBULATE WITH STEADY GAIT. EQUAL ORACLE IDENTITY MANAGEMENT CONSULTANT AND FACIAL SYMETRY. PUPILS PERRLA. VSS. NAD. STABLE CONDITION. AWAITING MD DEVRIES.
--- NOTE | 2018-01-21 20:55 | NUR ---
LAB AT BEDSIDE
[2018-01-21 22:04] LABS: BASOPHILS % (AUTO) 0.6 % (0.0-2.0); EOSINOPHILS % (AUTO) 5.7 % (0.0-6.0); HEMATOCRIT 46 % (39-51); HEMOGLOBIN 15.3 g/dL (13.5-17.5); LYMPHOCYTES % (AUTO) 23.5 % (20.0-44.0); MEAN CORPUSCULAR HEMOGLOBIN 32 PG (26.0-33.0); MEAN CORPUSCULAR HGB CONC 34 g/dl (31.0-36.0); MEAN CORPUSCULAR VOLUME 96 fL (80-96); MONOCYTES # (AUTO) 0.5 /CMM (0.1-1.30); MONOCYTES % (AUTO) 11.5 % (2.0-12.0); NEUTROPHILS # (AUTO) 2.6 /CMM (1.8-8.9); NEUTROPHILS % (AUTO) 58.7 % (43.0-81.0); PLATELET COUNT (AUTO) 158 /CMM (150-450); RED BLOOD CELL COUNT(AUTO) 4.77 MIL/uL (4.5-6.0); WHITE BLOOD COUNT (AUTO) 4.5 K/uL (4.3-11.0)
--- NOTE | 2018-01-21 22:13 | NUR ---
PT BROUGHT TO CT
--- NOTE | 2018-01-21 22:15 | NUR ---
PT AA/OX4.
[2018-01-21 22:16] LABS: CALCIUM, SERUM 8.6 mg/dL (8.5-10.1); CARBON DIOXIDE 29 mmol/L (21-32); CHLORIDE 104 mmol/L (98-107); CREATININE 1.2 mg/dL (0.6-1.3); GLUCOSE 74 mg/dL (74-106); POTASSIUM 3.5 mmol/L (3.5-5.1); SODIUM SERUM 140 mmol/L (136-145); UREA NITROGEN, BLOOD 11 mg/dL (7-18)
[2018-01-21 22:18] LABS: INR 1.05 (0.87-1.13)
--- NOTE | 2018-01-21 23:28 | NUR ---
Patient discharged to home in stable condition. Written and verbal after care instructions given. Patient verbalizes understanding of instruction. PT AMBULATED WITH STEADY GAIT UPON DC.
[2018-01-21 23:29] VITALS: BP 145/60
[2018-01-21] MEDS ORDERED: IV NS 0.9% 1,000 ML BAG IV ONE (23:30)
== END 2018-01-21 23:30 | disposition home or self-care (01) ==
LOC: ER 20:42
DX: R53.1 Weakness (principal); R51 Headache; R79.1 Abnormal coagulation profile; Z59.0 Homelessness; I10 Essential (primary) hypertension; E78.5 Hyperlipidemia, unspecified; Z86.73 Personal history of transient ischemic attack (TIA), and cerebral infarction without residual deficits; Z79.82 Long term (current) use of aspirin
CPT/HCPCS: 36415; 70450-TC; 80048-TC; 85025-TC; 85730-TC; A4606; J7030; Z7610

== ENCOUNTER 2018-03-15 13:55 | Emergency (ER) | payer MEDICARE, MEDICAID ==
[~2018-03-15] VITALS: Ht 172.7 cm; Wt 85.7 kg
[~2018-03-15 13:55] MED LIST changes: -BENA20TA2 PO; +BENA20TA9 PO
[2018-03-15 14:02] VITALS: BP 162/79
[2018-03-15] MEDS ORDERED: LIDOCAINE 2% JEL UROJET 10 ML MM ONE (15:00)
[2018-03-15] MEDS ORDERED: LIDOCAINE 2% JEL 5 ML TUBE ONE (15:17)
[2018-03-15 15:24] LABS: BASOPHILS # (AUTO) 0.1 /CMM (0.0-0.2); BASOPHILS % (AUTO) 1.9 % (0.0-2.0); EOSINOPHILS % (AUTO) 5.1 % (0.0-6.0); HEMATOCRIT 48 % (39-51); HEMOGLOBIN 15.4 g/dL (13.5-17.5); LYMPHOCYTES # (AUTO) 0.9 /CMM (0.8-4.8); LYMPHOCYTES % (AUTO) 22.9 % (20.0-44.0); MEAN CORPUSCULAR HEMOGLOBIN 30 PG (26.0-33.0); MEAN CORPUSCULAR HGB CONC 32 g/dl (31.0-36.0); MEAN CORPUSCULAR VOLUME 93 fL (80-96); MONOCYTES # (AUTO) 0.4 /CMM (0.1-1.30); MONOCYTES % (AUTO) 9.9 % (2.0-12.0); NEUTROPHILS # (AUTO) 2.2 /CMM (1.8-8.9); NEUTROPHILS % (AUTO) 60.2 % (43.0-81.0); PLATELET COUNT (AUTO) 186 /CMM (150-450); RDW COEFFICIENT OF VARIATION 13.1 (11.5-15.0); RED BLOOD CELL COUNT(AUTO) 5.13 MIL/uL (4.5-6.0); WHITE BLOOD COUNT (AUTO) 3.8 K/uL (4.3-11.0)
[2018-03-15 15:26] LABS: APPEARANCE,URINE Slightly Cloudy (CLEAR); BILIRUBIN,URINE SMALL (NEGATIVE); BLOOD, URINE Negative Ery/uL (NEGATIVE); COLOR,URINE Yellow (YELLOW); KETONES,URINE Trace (NEGATIVE); LEUKOCYTE ESTERASE ,URINE Negative (NEGATIVE); NITRITE, URINE Negative (NEGATIVE); PH,URINE 5.5 (5.0-8.0); PROTEIN,URINE Trace mg/dl (NEGATIVE); UGLUCOSE Negative (NEGATIVE); UROBILINOGEN,URINE 0.2 EU/dL (0.2)
[2018-03-15 15:28] LABS: CALCIUM, SERUM 9.1 mg/dL (8.5-10.1); CARBON DIOXIDE 28 mmol/L (21-32); CHLORIDE 102 mmol/L (98-107); CREATININE 1.2 mg/dL (0.6-1.3); GLUCOSE 93 mg/dL (74-106); POTASSIUM 3.6 mmol/L (3.5-5.1); SODIUM SERUM 138 mmol/L (136-145); UREA NITROGEN, BLOOD 14 mg/dL (7-18)
[2018-03-15 15:32] LABS: BACTERIA,URINE Few /HPF (None Seen); RBC,URINE 0-2 /HPF (0-2); SQUAMOUS EPITHELIAL CELL,UR Rare /HPF (None Seen); WBC,URINE 0-2 /HPF (0-3)
[2018-03-15 15:33] LABS: MUCUS,URINE Moderate /LPF (None Seen)
== END 2018-03-15 16:19 | disposition home or self-care (01) ==
LOC: ER 13:56
DX: R33.9 Retention of urine, unspecified (principal); I10 Essential (primary) hypertension; E78.5 Hyperlipidemia, unspecified; Z79.82 Long term (current) use of aspirin; Z79.899 Other long term (current) drug therapy; Z86.73 Personal history of transient ischemic attack (TIA), and cerebral infarction without residual deficits
CPT/HCPCS: 36415; 51702; 80048; 81001; 85025; 87086; 99284; A4606; 81000-TC; Z7610

== ENCOUNTER 2018-03-15 23:26 | Emergency (ER) | payer MEDICARE, MEDICAID ==
[~2018-03-15] VITALS: Ht 172.7 cm; Wt 75.3 kg
[2018-03-15 23:30] VITALS: BP 140/75
== END 2018-03-16 00:52 | disposition home or self-care (01) ==
LOC: ER 23:49
DX: Z00.00 Encounter for general adult medical examination without abnormal findings (principal); I10 Essential (primary) hypertension; R53.1 Weakness; E78.5 Hyperlipidemia, unspecified; Z86.73 Personal history of transient ischemic attack (TIA), and cerebral infarction without residual deficits; Z79.82 Long term (current) use of aspirin
CPT/HCPCS: 99281; A4606; Z7502; Z7610

== ENCOUNTER 2018-03-17 12:17 | Emergency (ER) | payer MEDICARE, MEDICAID ==
[~2018-03-17] VITALS: Ht 172.7 cm; Wt 75.7 kg
[2018-03-17 12:17] VITALS: BP 162/94
--- NOTE | 2018-03-17 12:38 | NUR ---
F/C DISCONTINUED PER ERMD VERBAL ORDER.
== END 2018-03-17 12:49 | disposition home or self-care (01) ==
LOC: ER 12:20
DX: R31.9 Hematuria, unspecified (principal); I10 Essential (primary) hypertension; E78.5 Hyperlipidemia, unspecified; R53.1 Weakness; Z86.73 Personal history of transient ischemic attack (TIA), and cerebral infarction without residual deficits; Z79.82 Long term (current) use of aspirin; Z46.6 Encounter for fitting and adjustment of urinary device
CPT/HCPCS: 99283; A4606; Z7610

== ENCOUNTER 2018-04-13 19:08 | Emergency (ER) | payer MEDICARE, MEDICAID ==
[~2018-04-13] VITALS: Ht 172.7 cm; Wt 79.4 kg
[~2018-04-13 19:08] MED LIST changes: -AMLO10TA2 PO; +AMLO10TA6 PO
[2018-04-13 19:50] LABS: BASOPHILS # (AUTO) 0.2 /CMM (0.0-0.2); BASOPHILS % (AUTO) 1.7 % (0.0-2.0); EOSINOPHILS % (AUTO) 0.5 % (0.0-6.0); HEMATOCRIT 45 % (39-51); HEMOGLOBIN 15.1 g/dL (13.5-17.5); LYMPHOCYTES % (AUTO) 9.2 % (20.0-44.0); MEAN CORPUSCULAR HGB CONC 33 g/dl (31.0-36.0); MEAN CORPUSCULAR VOLUME 93 fL (80-96); MONOCYTES # (AUTO) 0.7 /CMM (0.1-1.30); MONOCYTES % (AUTO) 6.7 % (2.0-12.0); NEUTROPHILS # (AUTO) 9.2 /CMM (1.8-8.9); NEUTROPHILS % (AUTO) 81.9 % (43.0-81.0); PLATELET COUNT (AUTO) 170 /CMM (150-450); RDW COEFFICIENT OF VARIATION 13.2 (11.5-15.0); RED BLOOD CELL COUNT(AUTO) 4.86 MIL/uL (4.5-6.0); WHITE BLOOD COUNT (AUTO) 11.2 K/uL (4.3-11.0)
[2018-04-13 20:00] LABS: CALCIUM, SERUM 8.7 mg/dL (8.5-10.1); CARBON DIOXIDE 30 mmol/L (21-32); CHLORIDE 101 mmol/L (98-107); CREATININE 1.4 mg/dL (0.6-1.3); GLUCOSE 88 mg/dL (74-106); POTASSIUM 3.3 mmol/L (3.5-5.1); SODIUM SERUM 134 mmol/L (136-145); UREA NITROGEN, BLOOD 14 mg/dL (7-18)
[2018-04-13 20:01] VITALS: BP 140/50
--- NOTE | 2018-04-13 20:03 | NUR ---
TRANSITIONS RN CARE COORDINATOR RCD 72/M BIB SELF A/O x4; C/O BLE PAIN AND FEVER x2 DAYS. PT DENIES PAIN OR SOB. NSR ON MONITOR. SWELLING NOTED TO BLE.
[2018-04-13 20:04] LABS: INR 1.14 (0.85-1.15)
[2018-04-13 20:09] LABS: TROPONIN I < 0.017 ng/mL (0.00-0.056)
--- NOTE | 2018-04-13 20:21 | NUR ---
WIRER HELPER VENOUS DOPPLER BEING DONE AT BEDSIDE.
== END 2018-04-13 22:00 | disposition home or self-care (01) ==
LOC: ER 19:09
DX: B34.9 Viral infection, unspecified (principal); D72.829 Elevated white blood cell count, unspecified; I11.0 Hypertensive heart disease with heart failure; I50.9 Heart failure, unspecified; I83.893 Varicose veins of bilateral lower extremities with other complications; E87.1 Hypo-osmolality and hyponatremia; E87.6 Hypokalemia; N28.9 Disorder of kidney and ureter, unspecified; E78.00 Pure hypercholesterolemia, unspecified; I25.10 Atherosclerotic heart disease of native coronary artery without angina pectoris; I49.8 Other specified cardiac arrhythmias; R53.1 Weakness; Z79.82 Long term (current) use of aspirin; Z86.73 Personal history of transient ischemic attack (TIA), and cerebral infarction without residual deficits
CPT/HCPCS: 36415; 71045; 80048; 84484; 85025; 85730; 93005; 93970; 99285; A4606; Z7610

== ENCOUNTER 2018-07-01 21:17 | Inpatient (IN) | payer MEDICARE, MEDICAID ==
[~2018-07-01] VITALS: Ht 172.7 cm; Wt 79.4 kg
[~2018-07-01 21:17] MED LIST changes: -AMLO10TA6 PO; +AMLO10TA7 PO
--- NOTE | 2018-07-01 21:48 | NUR ---
Pt came in c/o weakness which started at 1400 today. He also states he feels dizzy. He is A, O/4, ambulates with steady gait, on RA.
--- NOTE | 2018-07-01 22:35 | NUR ---
EKG in progress
--- NOTE | 2018-07-01 22:40 | NUR ---
Labs drawn, Dr. Holland at BS.
[2018-07-01 22:45] LABS: BASOPHILS # (AUTO) 0.1 /CMM (0.0-0.2); BASOPHILS % (AUTO) 1.3 % (0.0-2.0); EOSINOPHILS % (AUTO) 3.9 % (0.0-6.0); HEMATOCRIT 48 % (39-51); HEMOGLOBIN 16.2 g/dL (13.5-17.5); LYMPHOCYTES % (AUTO) 25.8 % (20.0-44.0); MEAN CORPUSCULAR HGB CONC 34 g/dl (31.0-36.0); MEAN CORPUSCULAR VOLUME 96 fL (80-96); MONOCYTES # (AUTO) 0.5 /CMM (0.1-1.30); MONOCYTES % (AUTO) 13.3 % (2.0-12.0); NEUTROPHILS # (AUTO) 2.3 /CMM (1.8-8.9); NEUTROPHILS % (AUTO) 55.7 % (43.0-81.0); PLATELET COUNT (AUTO) 208 /CMM (150-450); RED BLOOD CELL COUNT(AUTO) 4.98 MIL/uL (4.5-6.0); WHITE BLOOD COUNT (AUTO) 4.1 K/uL (4.3-11.0)
--- NOTE | 2018-07-01 22:49 | NUR ---
Pt walked to the BR with a cane..
[2018-07-01 22:54] LABS: CALCIUM, SERUM 9.1 mg/dL (8.5-10.1); CARBON DIOXIDE 35 mmol/L (21-32); CHLORIDE 102 mmol/L (98-107); CREATININE 0.9 mg/dL (0.6-1.3); GLUCOSE 81 mg/dL (74-106); POTASSIUM 3.8 mmol/L (3.5-5.1); SODIUM SERUM 141 mmol/L (136-145); UREA NITROGEN, BLOOD 11 mg/dL (7-18)
[2018-07-01 23:11] LABS: ALANINE AMINOTRANSFERASE 55 U/L (12-78); ALKALINE PHOSPHATASE 102 U/L (46-116); ASPARTATE AMINOTRANSFERASE 40 U/L (15-37); B-TYPE NATRIURETIC PEPTIDE 77 PG/ML (0-125); BILIRUBIN,DIRECT 0.1 mg/dL (0.0-0.2); BILIRUBIN,TOTAL 0.6 mg/dL (0.2-1.0); TOTAL PROTEIN, SERUM 7.8 g/dL (6.4-8.2)
--- NOTE | 2018-07-01 23:40 | NUR ---
pt requested for and was given mouthwash. Ambulated to the BR with a cane
[2018-07-02] VITALS (7 sets, daily range): BP systolic 113–153; BP diastolic 59–84
--- NOTE | 2018-07-02 00:30 | NUR ---
Labs redrawn, per Mac from lab, pt's blood sample got hemolyzed.
[2018-07-02] MEDS ORDERED: MAGNESIUM HYDROXIDE 30 ML UDC PO PRN (01:00)
[2018-07-02] MEDS ORDERED: ACETAMINOPHEN 325 MG TABLET PO PRN (01:00)
[2018-07-02] MEDS ORDERED: Z GUARD REMEDY 2 OZ OINT TP PRN (01:00)
[2018-07-02] MEDS ORDERED: ONDANSETRON HCL/PF 4 MG/2 ML VIAL IVP PRN (01:00)
[2018-07-02] MEDS ORDERED: ZOLPIDEM TARTRATE 5 MG TABLET PO PRN (01:00)
[2018-07-02] MEDS ORDERED: MAG HYDROX/AL HYDROX/SIMETH 30 ML UDC PO PRN (01:00)
--- NOTE | 2018-07-02 01:00 | NUR ---
Pt resting in bed comfortably, states he wants to sleep. Warm blanket and urinal provided
[2018-07-02 01:05] LABS: D-DIMER 0.65 mg/L(FEU (0.17-0.50)
--- NOTE | 2018-07-02 01:48 | NUR ---
18g lac initiated by Rachel. previous attempts made by RN not successful.
--- NOTE | 2018-07-02 02:15 | NUR ---
Pt will be admitted to tele unit, report given by Arun, Charge Nurse, to AUSTIN Herrera.
[2018-07-02] MEDS: ENOXAPARIN SODIUM 40 MG/0.4 ML DISP.SYRIN SQ SCH ×2 (03:46→20:47)
[2018-07-02] MEDS: IV NS 0.9% 1,000 ML IV PRN ×2 (03:46→22:45)
--- NOTE | 2018-07-02 04:00 | NUR ---
FOOD TECHNOLOGIST NOTE: BEDSIDE REPORT RECEIVED FROM JERRY CHENG FOR CONTINUITY OF CARE.
[2018-07-02] MEDS ORDERED: BLOOD SUGAR DIAGNOSTIC 1 EACH STRIP IN SCH (06:00)
[2018-07-02] MEDS: BLOOD SUGAR DIAGNOSTIC 1 EACH STRIP IN SCH ×4 (06:37→21:57)
--- NOTE | 2018-07-02 06:47 | NUR ---
TRUCK DRIVER HELPER NOTE: PT IN BED ALERT AND AWAKE. NO APPARENT DISTRESS NOTED. DENIES PAIN AND DISCOMFORT AT THIS TIME. ON ROOM AIR, NO SOB NOTED. ACCU CHECK DONE, 78 MG/DL. IV ON LEFT ANTECUBITAL #18 INTACT AND PATENT, IVF INFUSING WELL. SINUS RHYTHM ON TELE MONITOR HR 64BPM. KEPT CLEAN, DRY AND COMFORTABLE. CALL LIGHT PLACED WITHIN REACH. WILL ENDORSE TO DAY SHIFT RN FOR CONTINUITY OF CARE.
--- NOTE | 2018-07-02 07:00 | NUR ---
DATABASE MARKETING ANALYST NOTE PATIENT RECEIVED IN BED NO S/S OF DISTRESS. PATIENT DENIES C/O PAIN. PT AAOX4, EXPRESSES DESIRE TO CALL HOME. NUMBER GIVEN, PATIENT CALLED. NO S.S OF RESP DISTRESS. ALL NEEDS ATTENDED. BED IN LOWEST LOCKED POSITION, SIDE RAILS UP X 2, ALL NEEDS ATTENDED, CALL LIGHT AT HAND.
[2018-07-02] MEDS: ASPIRIN EC 325 MG TABLET.DR PO SCH (08:28)
[2018-07-02] MEDS: CHOLECALCIFEROL 1,000 UNIT TABLET (VIT D3) PO SCH (08:29)
[2018-07-02] MEDS: BENAZEPRIL HCL 20 MG TABLET PO SCH ×2 (08:29→16:55)
[2018-07-02] MEDS: FOLIC ACID 1 MG TABLET PO SCH (08:29)
[2018-07-02] MEDS: AMLODIPINE BESYLATE 10 MG TABLET PO SCH (08:29)
[2018-07-02] MEDS ORDERED: CARVEDILOL 3.125 MG TABLET PO SCH (09:00)
[2018-07-02] MEDS ORDERED: SULINDAC PO SCH (09:00)
[2018-07-02] MEDS: OXYBUTYNIN CHLORIDE ER 5 MG TAB PO SCH (09:05)
[2018-07-02] MEDS ORDERED: ATORVASTATIN 40 MG TABLET PO SCH (09:52)
--- NOTE | 2018-07-02 11:10 | NUR ---
SHIP BOSS NOTE PATIENT WENT INTO RADIOLOGY FOR MRI. PATIENT STABLE
[2018-07-02 11:54] LABS: THYROID STIMULATING HORMONE 1.535 uIU/mL (0.358-3.74)
--- NOTE | 2018-07-02 12:15 | NUR ---
HAND I BLOCKER NOTE PATIENT ARRIVED BACK POST PROCEDURE NO S/S OF DISTRESS.
[2018-07-02] MEDS: CARVEDILOL 3.125 MG TABLET PO SCH (16:55)
--- NOTE | 2018-07-02 19:30 | NUR ---
TRACTOR EXPERT INITIAL NOTES PATIENT RECEIVED SITTING UP IN BED, WATCHING TV. ALERT, ORIENTED X 4. BREATHING EVEN AND UNLABORED. NOT IN ANY DISTRESS. NO COMPLAINTS OF PAIN OR DISCOMFORT OF THIS TIME. TELE MONITOR IN PLACE, SR 62 WITH 1ST AV BLOCK. PERIPHERAL IV ON LAC INFUSING AT 75ML/HR. CALL ANDRADE WITHIN REACH. BED IN LOW, LOCKED POSITION. PATIENT STABLE ENDORSED BY THE MORNING RN. WILL CONTINUE TO MONITOR ACCORDINGLY
--- NOTE | 2018-07-02 21:58 | NUR ---
RN NOTES BSL 89MG/DL
[2018-07-02] MEDS ORDERED: SIMVASTATIN 40 MG TABLET PO SCH (22:00)
[2018-07-03] VITALS: BP 142/85
[2018-07-03] MEDS: HYDROCODONE/APAP 5/325MG 1 EACH TABLET PO PRN ×2 (01:01→11:55)
--- NOTE | 2018-07-03 01:03 | NUR ---
RN NOTES PATIENT C/O LOWER BACK PAIN, 12/22. NORCO 5-325 GIVEN ORDERED
[2018-07-03 04:00] VITALS: BP_SYST 143; BP_DIAS 77; BP_DIAS 85
[2018-07-03 05:58] LABS: APPEARANCE,URINE CLEAR (CLEAR); BILIRUBIN,URINE NEGATIVE (NEGATIVE); BLOOD, URINE NEGATIVE Ery/uL (NEGATIVE); COLOR,URINE YELLOW (YELLOW); KETONES,URINE NEGATIVE (NEGATIVE); LEUKOCYTE ESTERASE ,URINE NEGATIVE (NEGATIVE); NITRITE, URINE NEGATIVE (NEGATIVE); PH,URINE 7.5 (5.0-8.0); PROTEIN,URINE NEGATIVE (NEGATIVE); UGLUCOSE NEGATIVE (NEGATIVE); UROBILINOGEN,URINE 0.2 EU/dL (0.2)
[2018-07-03 06:48] LABS: BASOPHILS % (AUTO) 1.2 % (0.0-2.0); EOSINOPHILS % (AUTO) 8.2 % (0.0-6.0); HEMATOCRIT 44 % (39-51); HEMOGLOBIN 14.9 g/dL (13.5-17.5); LYMPHOCYTES % (AUTO) 28.9 % (20.0-44.0); MEAN CORPUSCULAR HGB CONC 34 g/dl (31.0-36.0); MEAN CORPUSCULAR VOLUME 95 fL (80-96); MONOCYTES # (AUTO) 0.5 /CMM (0.1-1.30); MONOCYTES % (AUTO) 14.3 % (2.0-12.0); NEUTROPHILS # (AUTO) 1.7 /CMM (1.8-8.9); NEUTROPHILS % (AUTO) 47.4 % (43.0-81.0); PLATELET COUNT (AUTO) 183 /CMM (150-450); RED BLOOD CELL COUNT(AUTO) 4.61 MIL/uL (4.5-6.0); WHITE BLOOD COUNT (AUTO) 3.6 K/uL (4.3-11.0)
--- NOTE | 2018-07-03 06:51 | NUR ---
COMPETITIVE SHOPPER CLOSING NOTES Patient in bed, alert, oriented x 4. Breathing even and unlabored. Not in any distress. No complaints as of this time. Tele monitor in place, SB 59 with 1st degree block. Peripheral IV infusing at 75mL/Hr. All needs attended to. All due medications given as ordered. Call lyons within reach. Bed in low, locked position. Will endorse continuity of care to oncoming RN
[2018-07-03 07:03] LABS: CALCIUM, SERUM 8.2 mg/dL (8.5-10.1); CARBON DIOXIDE 26 mmol/L (21-32); CHLORIDE 105 mmol/L (98-107); CHOLESTEROL 115 mg/dL (<200); CREATININE 0.9 mg/dL (0.6-1.3); GLUCOSE 80 mg/dL (74-106); HDL CHOLESTEROL 44 mg/dL (40-60); LDL 68 mg/dL (0-99); MAGNESIUM 1.9 mg/dL (1.8-2.4); PHOSPHORUS 2.8 mg/dL (2.5-4.9); SODIUM SERUM 135 mmol/L (136-145); TRIGLYCERIDES 63 mg/dL (30-150); UREA NITROGEN, BLOOD 9 mg/dL (7-18)
[2018-07-03 08:00] VITALS: BP 165/99
--- NOTE | 2018-07-03 08:00 | NUR ---
CATALYTIC CONVERTER OPERATOR HELPER AM NOTES PATIENT RECEIVED SITTING UP IN BED, WATCHING TV. ALERT, ORIENTED X 4. BREATHING EVEN AND UNLABORED. NOT IN ANY DISTRESS. NO COMPLAINTS OF PAIN OR DISCOMFORT.TELE MONITOR IN PLACE, SR 62 WITH 1ST AV BLOCK. PERIPHERAL IVF NS ON LAC INFUSING AT 75ML/HR. CALL ANDRADE WITHIN REACH. BED IN LOW, LOCKED POSITION. WILL CONTINUE TO MONITOR.
[2018-07-03] MEDS: BLOOD SUGAR DIAGNOSTIC 1 EACH STRIP IN SCH ×3 (08:31→17:29)
[2018-07-03] MEDS: OXYBUTYNIN CHLORIDE ER 5 MG TAB PO SCH (08:49)
[2018-07-03] MEDS: CARVEDILOL 3.125 MG TABLET PO SCH ×2 (08:49→17:29)
[2018-07-03] MEDS: CHOLECALCIFEROL 1,000 UNIT TABLET (VIT D3) PO SCH (08:49)
[2018-07-03] MEDS: AMLODIPINE BESYLATE 10 MG TABLET PO SCH (08:49)
[2018-07-03] MEDS: FOLIC ACID 1 MG TABLET PO SCH (08:49)
[2018-07-03] MEDS: BENAZEPRIL HCL 20 MG TABLET PO SCH ×2 (08:50→17:28)
[2018-07-03] MEDS: ASPIRIN EC 325 MG TABLET.DR PO SCH (08:50)
[2018-07-03] MEDS: POTASSIUM CHLORIDE 20 MEQ TAB.PRT.SR PO SCH ×3 (11:54→13:30)
[2018-07-03 12:00] VITALS: BP 142/90
--- NOTE | 2018-07-03 13:30 | NUR ---
KDUR 20 MEQ PO GIVEN AT 1330-AND ACCIDENTALLY THREW THE FOILED CONTAINER IN THE TRASH CAN
[2018-07-03 16:00] VITALS: BP 141/73
[2018-07-03 17:29] VITALS: BP 141/73
--- NOTE | 2018-07-03 18:20 | NUR ---
PT IS FOR DISCHARGE HOME WITH STABLE V/S.CHECKED PT'S BELONGINGS AND SIGNED BY PT FOR DISCHARGE.DENIES ANY PAIN OR DISTRESS.PT IS SO HAPPY THAT HIS BLE EDEMA WAS GONE DURING HIS STAY.INSTRUCTED TO AVOID SALTY FOODS AND KEEPING HIS BLE ELEVATED PT VERBALIZED UNDERSTANDING OF INSTRUCTIONS GIVEN.IV H/L REMOVED TO LT AC WITHOUT BLEEDING NOTED.PT TOLERATED WELL.LET PT EAT HIS DINNER AND WILL DISCHARGE LATER.
--- NOTE | 2018-07-03 19:07 | NUR ---
DISCHARGED PT HOME WITH STABLE V/S.AMBULATING AD KEI WITH STEADY GAIT.DENYING ANY CARDIAC DISTRESS.ASSISTED TO THE LOBBY WITH BELONGINGS.PT STATED THAT HE WILL RIDE THE BUS AND CAN MANAGE TO GO HOME ON HIS OWN
== END 2018-07-03 21:28 | disposition home or self-care (01) | DRG 69 ==
LOC: ER 21:22 → TELE1 07-02 01:23
PROVIDERS: ADMIT Internal Medicine; ATTEND Internal Medicine
DX: G45.9 Transient cerebral ischemic attack, unspecified (principal); I69.351 Hemiplegia and hemiparesis following cerebral infarction affecting right dominant side; I25.10 Atherosclerotic heart disease of native coronary artery without angina pectoris; E78.5 Hyperlipidemia, unspecified; I11.0 Hypertensive heart disease with heart failure; I25.2 Old myocardial infarction; I50.9 Heart failure, unspecified; M19.90 Unspecified osteoarthritis, unspecified site; Z79.82 Long term (current) use of aspirin; Z79.899 Other long term (current) drug therapy
CPT/HCPCS: 36415; 70551-TC; 71045-TC; 80048-TC; 80061-TC; 80076-TC; 81000-TC; 82962-TC; 83735-TC; 83880; 84100-TC; 84439-TC; 84443-TC; 84484-TC; 85025-TC; 85378-TC; 85652-TC; 85730-TC; 87081-TC; 92611-TC; 93307-TC; 93970-TC; G0378; J1650; J7030; Q2036

== ENCOUNTER 2018-07-31 06:08 | Emergency (ER) | payer MEDICAID, MEDICARE ==
[~2018-07-31] VITALS: Ht 172.7 cm; Wt 78.0 kg
--- NOTE | 2018-07-31 06:15 | NUR ---
Pt came in for high blood pressure, stated he took blood pressure pills while in the waiting room 30-45 minutes prior to this assessment. He verbalized "I feel uneasy, I feel sick." He denies N/V, headache and chest pain. Pt is A, O/4, walks independently, on RA. Awaiting MD for eval and orders.
--- NOTE | 2018-07-31 06:41 | NUR ---
Pt's BP went down to 132/87, no acute distress noted, awaiting DC
[2018-07-31 06:43] VITALS: BP 132/87
== END 2018-07-31 06:44 | disposition home or self-care (01) ==
LOC: ER 06:10
DX: I11.0 Hypertensive heart disease with heart failure (principal); I50.9 Heart failure, unspecified; E78.5 Hyperlipidemia, unspecified; I25.10 Atherosclerotic heart disease of native coronary artery without angina pectoris; I25.2 Old myocardial infarction; Z86.73 Personal history of transient ischemic attack (TIA), and cerebral infarction without residual deficits; Z79.82 Long term (current) use of aspirin; Z79.899 Other long term (current) drug therapy
CPT/HCPCS: 99283; A4606; Z7610

== ENCOUNTER 2018-08-20 01:35 | Emergency (ER) | payer MEDICAID, MEDICARE ==
[~2018-08-20] VITALS: Ht 172.7 cm; Wt 78.0 kg
--- NOTE | 2018-08-20 01:40 | NUR ---
Pt hypertnesive on the monitor. ER Aware. will carry out orders.
--- NOTE | 2018-08-20 01:45 | NUR ---
Pt came to emergency dept. complaining of L leg weakness x 30 min, after drinking decaf coffee at [facility]. Pt L leg CMS intact. Pt able to move L leg at the moment. No weakness noted. Pt AAXO4. Respirations even and unlabored. Pt put on air sampler and pulse ox. Pending Eval from ER .
[2018-08-20] MEDS ORDERED: hydrALAZINE HCL IV 20 MG VIAL ONE (01:56)
[2018-08-20] MEDS ORDERED: hydrALAZINE HCL IV 20 MG VIAL IV ONE (02:00)
--- NOTE | 2018-08-20 02:05 | NUR ---
XRAY at bedside.
[2018-08-20 02:13] LABS: BASOPHILS # (AUTO) 0.1 /CMM (0.0-0.2); EOSINOPHILS % (AUTO) 3.6 % (0.0-6.0); HEMATOCRIT 51 % (39-51); HEMOGLOBIN 17.4 g/dL (13.5-17.5); LYMPHOCYTES # (AUTO) 1.8 /CMM (0.8-4.8); LYMPHOCYTES % (AUTO) 34.4 % (20.0-44.0); MEAN CORPUSCULAR HGB CONC 34 g/dl (31.0-36.0); MEAN CORPUSCULAR VOLUME 95 fL (80-96); MONOCYTES # (AUTO) 0.6 /CMM (0.1-1.30); MONOCYTES % (AUTO) 11.1 % (2.0-12.0); NEUTROPHILS # (AUTO) 2.7 /CMM (1.8-8.9); NEUTROPHILS % (AUTO) 49.9 % (43.0-81.0); PLATELET COUNT (AUTO) 215 /CMM (150-450); WHITE BLOOD COUNT (AUTO) 5.4 K/uL (4.3-11.0)
[2018-08-20 02:23] LABS: APPEARANCE,URINE CLEAR (CLEAR); BILIRUBIN,URINE NEGATIVE (NEGATIVE); BLOOD, URINE NEGATIVE Ery/uL (NEGATIVE); COLOR,URINE YELLOW (YELLOW); KETONES,URINE TRACE (NEGATIVE); LEUKOCYTE ESTERASE ,URINE NEGATIVE (NEGATIVE); NITRITE, URINE NEGATIVE (NEGATIVE); PROTEIN,URINE NEGATIVE (NEGATIVE); UGLUCOSE NEGATIVE (NEGATIVE); UROBILINOGEN,URINE 0.2 EU/dL (0.2)
[2018-08-20 02:26] LABS: CALCIUM, SERUM 9.8 mg/dL (8.5-10.1); CARBON DIOXIDE 28 mmol/L (21-32); CHLORIDE 102 mmol/L (98-107); CREATININE 1.1 mg/dL (0.6-1.3); GLUCOSE 82 mg/dL (74-106); POTASSIUM 3.6 mmol/L (3.5-5.1); SODIUM SERUM 139 mmol/L (136-145); UREA NITROGEN, BLOOD 15 mg/dL (7-18)
[2018-08-20 02:31] LABS: BACTERIA,URINE None seen /HPF (None Seen); RBC,URINE 0-2 /HPF (0-2); SQUAMOUS EPITHELIAL CELL,UR Rare /HPF (None Seen); WBC,URINE 0-2 /HPF (0-3)
[2018-08-20 02:33] LABS: ALANINE AMINOTRANSFERASE 35 U/L (12-78); ALBUMIN 4.3 g/dL (3.4-5.0); ALKALINE PHOSPHATASE 117 U/L (46-116); ASPARTATE AMINOTRANSFERASE 31 U/L (15-37); BILIRUBIN,DIRECT 0.1 mg/dL (0.0-0.2); BILIRUBIN,TOTAL 0.5 mg/dL (0.2-1.0); TOTAL PROTEIN, SERUM 8.5 g/dL (6.4-8.2)
--- NOTE | 2018-08-20 02:45 | NUR ---
Pt refused CT Scan. ER AWARE.
--- NOTE | 2018-08-20 03:38 | NUR ---
Patient discharged to home in stable condition. Written and verbal after care instructions given. Patient verbalizes understanding of instruction. IV removed. Catheter intact and site benign. Pressure and 4x4 applied to site. No bleeding noted.
[2018-08-20 03:41] VITALS: BP 152/97
== END 2018-08-20 03:42 | disposition home or self-care (01) ==
LOC: ER 01:35
DX: I16.0 Hypertensive urgency (principal); R53.1 Weakness; E78.5 Hyperlipidemia, unspecified; I25.10 Atherosclerotic heart disease of native coronary artery without angina pectoris; I11.0 Hypertensive heart disease with heart failure; I50.9 Heart failure, unspecified; Z95.5 Presence of coronary angioplasty implant and graft; Z79.82 Long term (current) use of aspirin
CPT/HCPCS: 36415; 71045-TC; 80048-TC; 80076-TC; 81000-TC; 84484-TC; 85025-TC; 85730-TC; J0360

== ENCOUNTER 2018-10-15 21:57 | Emergency (ER) | payer MEDICAID, MEDICARE ==
[~2018-10-15] VITALS: Ht 172.7 cm; Wt 78.0 kg
[2018-10-15 22:49] VITALS: BP 165/87
--- NOTE | 2018-10-15 23:10 | NUR ---
TECH AT BEDSIDE FOR EKG
--- NOTE | 2018-10-15 23:30 | NUR ---
PHLEB AT BEDSIDE FOR LAB DRAW
[2018-10-15 23:50] LABS: BASOPHILS % (AUTO) 0.7 % (0.0-2.0); EOSINOPHILS % (AUTO) 3.6 % (0.0-6.0); HEMATOCRIT 47 % (39-51); HEMOGLOBIN 15.9 g/dL (13.5-17.5); LYMPHOCYTES % (AUTO) 21.6 % (20.0-44.0); MEAN CORPUSCULAR HGB CONC 34 g/dl (31.0-36.0); MEAN CORPUSCULAR VOLUME 94 fL (80-96); MONOCYTES # (AUTO) 0.6 /CMM (0.1-1.30); NEUTROPHILS # (AUTO) 2.9 /CMM (1.8-8.9); NEUTROPHILS % (AUTO) 62.1 % (43.0-81.0); PLATELET COUNT (AUTO) 205 /CMM (150-450); RED BLOOD CELL COUNT(AUTO) 4.98 MIL/uL (4.5-6.0); WHITE BLOOD COUNT (AUTO) 4.7 K/uL (4.3-11.0)
[2018-10-15 23:51] LABS: CALCIUM, SERUM 9.2 mg/dL (8.5-10.1); CARBON DIOXIDE 29 mmol/L (21-32); CHLORIDE 106 mmol/L (98-107); CREATININE 0.9 mg/dL (0.6-1.3); GLUCOSE 84 mg/dL (74-106); POTASSIUM 3.7 mmol/L (3.5-5.1); SODIUM SERUM 143 mmol/L (136-145); UREA NITROGEN, BLOOD 13 mg/dL (7-18)
== END 2018-10-16 01:20 | disposition home or self-care (01) ==
LOC: ER 22:26
DX: R00.2 Palpitations (principal); I11.0 Hypertensive heart disease with heart failure; I50.9 Heart failure, unspecified; E78.5 Hyperlipidemia, unspecified; I25.2 Old myocardial infarction; Z86.73 Personal history of transient ischemic attack (TIA), and cerebral infarction without residual deficits; Z79.899 Other long term (current) drug therapy; Z79.82 Long term (current) use of aspirin
CPT/HCPCS: 36415; 80048-TC; 83735-TC; 85025-TC

== ENCOUNTER 2019-02-24 11:16 | Inpatient (IN) | payer MEDICARE, MEDICAID ==
[~2019-02-24] VITALS: Ht 172.7 cm; Wt 83.9 kg
[~2019-02-24 11:16] MED LIST changes: -OXYB10TA PO; +OXYB10TA2 PO
--- NOTE | 2019-02-24 11:27 | NUR ---
[id number], C/O DIZZINESS 1hr FIELD AIDE, BS 130. HX STROKE. ADMITS TO FEELING WEAK. DENIES VISION CHANGES. -NEURO DEFICITS. NO ACUTE DISTRESS NOTED. SKIN INTACT. ON MONITOR AND READY FOR EVAL.
[2019-02-24] MEDS ORDERED: IV NS 0.9% 1,000 ML BAG IV ONE (12:00)
[2019-02-24 12:11] LABS: BASOPHILS % (AUTO) 0.8 % (0.0-2.0); HEMATOCRIT 48 % (39-51); HEMOGLOBIN 16.3 g/dL (13.5-17.5); LYMPHOCYTES # (AUTO) 0.6 /CMM (0.8-4.8); LYMPHOCYTES % (AUTO) 16.6 % (20.0-44.0); MEAN CORPUSCULAR HGB CONC 34 g/dl (31.0-36.0); MEAN CORPUSCULAR VOLUME 95 fL (80-96); MONOCYTES # (AUTO) 0.4 /CMM (0.1-1.30); MONOCYTES % (AUTO) 11.1 % (2.0-12.0); NEUTROPHILS # (AUTO) 2.6 /CMM (1.8-8.9); NEUTROPHILS % (AUTO) 68.5 % (43.0-81.0); PLATELET COUNT (AUTO) 181 /CMM (150-450); RED BLOOD CELL COUNT(AUTO) 5.04 MIL/uL (4.5-6.0); WHITE BLOOD COUNT (AUTO) 3.8 K/uL (4.3-11.0)
[2019-02-24 12:17] LABS: CARBON DIOXIDE 24 mmol/L (21-32); CHLORIDE 104 mmol/L (98-107); CREATININE 1.4 mg/dL (0.6-1.3); GLUCOSE 113 mg/dL (74-106); POTASSIUM 3.8 mmol/L (3.5-5.1); SODIUM SERUM 139 mmol/L (136-145); UREA NITROGEN, BLOOD 15 mg/dL (7-18)
--- NOTE | 2019-02-24 13:14 | NUR ---
PT STATES FEELING "A LITTLE BETTER". IVF INFUSING. MD NOTIFIED. WILL CONT TO MONITOR.
[2019-02-24] MEDS ORDERED: HYDR-4075 PO (13:18)
[2019-02-24] MEDS ORDERED: TAMS-12 PO (13:18)
--- NOTE | 2019-02-24 14:14 | NUR ---
REPORT GIVEN TO MARIA ELENA EDWARDS FOR 326-1 TELE
--- NOTE | 2019-02-24 14:27 | NUR ---
FOOD TRAY GIVEN TO PT
[2019-02-24] MEDS ORDERED: ONDANSETRON HCL/PF 4 MG/2 ML VIAL IVP PRN (15:00)
[2019-02-24] MEDS ORDERED: ACETAMINOPHEN 325 MG TABLET PO PRN (15:00)
[2019-02-24] MEDS ORDERED: TEMAZEPAM 15 MG CAPSULE PO PRN (15:00)
[2019-02-24] MEDS ORDERED: MAG HYDROX/AL HYDROX/SIMETH 30 ML UDC PO PRN (15:00)
[2019-02-24] MEDS ORDERED: MORPHINE SULFATE INJ 2 MG/ML DISP.SYRIN IV PRN (15:00)
[2019-02-24] MEDS ORDERED: HYDROCODONE/APAP 5/325MG 1 EACH TABLET PO PRN (15:00)
[2019-02-24] MEDS ORDERED: MAGNESIUM HYDROXIDE 30 ML UDC PO PRN (15:00)
--- NOTE | 2019-02-24 15:02 | NUR ---
[facility]
[2019-02-24 15:30] VITALS: BP_SYST 104; BP_SYST 108; BP_SYST 97; BP_DIAS 55; BP_DIAS 58; BP_DIAS 64
--- NOTE | 2019-02-24 15:30 | NUR ---
tele vp hr diversity: admission admitted this 73 year old male pt from e.. with dx: syncope. place pt on tele [phone]'s with pvc's. denies any chest pain, n/v, dizziness, or any discomfort. fluids provided. left message to debra obando (acnp). orders acknowledged. will continue to monitor.
[2019-02-24] MEDS: IV NS 0.9% 1,000 ML IV PRN (15:37)
--- NOTE | 2019-02-24 15:37 | NUR ---
tele inspector tool: notes iv fluids ns started at 75ml/hr. will continue to monitor.
[2019-02-24 15:40] LABS: APPEARANCE,URINE Clear (CLEAR); BILIRUBIN,URINE Negative (NEGATIVE); BLOOD, URINE Negative Ery/uL (NEGATIVE); COLOR,URINE Yellow (YELLOW); KETONES,URINE Trace (NEGATIVE); LEUKOCYTE ESTERASE ,URINE Negative (NEGATIVE); NITRITE, URINE Negative (NEGATIVE); PROTEIN,URINE Negative (NEGATIVE); UGLUCOSE Negative (NEGATIVE)
--- NOTE | 2019-02-24 15:50 | NUR ---
tele mixer operator: notes stat ekg ordered and showed st 140's. debra obando (acnp) notified and made aware with order to give 500ml ns bolus. order read back and carried out.
[2019-02-24 15:54] LABS: BACTERIA,URINE Few /HPF (None Seen); CALCIUM OXALATE CRYSTALS,UR Rare /HPF (None Seen); HYALINE CASTS, URINE Moderate /LPF (None Seen); RBC,URINE 0-2 /HPF (0-2); SQUAMOUS EPITHELIAL CELL,UR Few /HPF (None Seen); WBC,URINE 0-2 /HPF (0-3)
[2019-02-24] MEDS ORDERED: IV NS 0.9% 500 ML IV ONE (16:00)
--- NOTE | 2019-02-24 16:00 | NUR ---
tele data reporting analyst: nephro consult seen by dr. irving.
--- NOTE | 2019-02-24 16:15 | NUR ---
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 will continue to monitor.
--- NOTE | 2019-02-24 16:25 | NUR ---
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 pires and made aware re: ekg results and also made aware of new orders from the hospitalist.
[2019-02-24] MEDS: AMIODARONE HCL 200 MG TABLET PO SCH (16:49)
[2019-02-24] MEDS: SIMVASTATIN 20 MG TABLET PO SCH (17:16)
--- NOTE | 2019-02-24 18:00 | NUR ---
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 orders acknowledged.
--- NOTE | 2019-02-24 18:30 | NUR ---
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 needs attended. tele sr =65. no apparent distress noted. instructed to call for assistance.
--- NOTE | 2019-02-24 19:00 | NUR ---
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 2d echo in progress at this time.
--- NOTE | 2019-02-24 19:50 | NUR ---
EPIC CUPID ANALYST NOTE: PATIENT RESTING IN BED, NO ACUTE DISTRESS NOTED. BREATHING EVEN AND UNLABORED, NO SOB NOTED. IV TO LAC IN PLACE. TELE READING SR 72. BED LOCKED AND IN LOWEST POSITION, CALL LIGHT IN REACH. WILL CONTINUE TO MONITOR.
[2019-02-24 20:00] VITALS: BP 125/76
[2019-02-24] MEDS: TAMSULOSIN 0.4 MG CAP.SR.24H PO SCH (21:45)
[2019-02-25] VITALS: BP 123/74
--- NOTE | 2019-02-25 03:30 | NUR ---
BEND UP NOTE: PATIENT RESTING IN BED, NO ACUTE DISTRESS NOTED. BREATHING EVEN AND UNLABORED, NO SOB NOTED. TELE READING SR 60. BED LOCKED AND IN LOWEST POSITION, CALL LIGHT IN REACH. WILL CONTINUE TO MONITOR.
[2019-02-25 04:00] VITALS: BP 138/80
--- NOTE | 2019-02-25 06:30 | NUR ---
METER SUPERVISOR NOTE: PATIENT RESTING IN BED, NO ACUTE DISTRESS NOTED. BREATHING EVEN AND UNLABORED, NO SOB NOTED. IV TO LAC IN PLACE. TELE READING SR 65. BED LOCKED AND IN LOWEST POSITION, CALL LIGHT IN REACH. WILL ENDORSE TO DAY NURSE TO CONTINUE WITH PLAN OF CARE.
[2019-02-25 06:34] LABS: EOSINOPHILS % (AUTO) 4.5 % (0.0-6.0); HEMATOCRIT 46 % (39-51); HEMOGLOBIN 15.9 g/dL (13.5-17.5); LYMPHOCYTES # (AUTO) 0.9 /CMM (0.8-4.8); MEAN CORPUSCULAR HGB CONC 34 g/dl (31.0-36.0); MEAN CORPUSCULAR VOLUME 94 fL (80-96); MONOCYTES # (AUTO) 0.5 /CMM (0.1-1.30); MONOCYTES % (AUTO) 12.5 % (2.0-12.0); NEUTROPHILS # (AUTO) 2.4 /CMM (1.8-8.9); PLATELET COUNT (AUTO) 193 /CMM (150-450); RED BLOOD CELL COUNT(AUTO) 4.94 MIL/uL (4.5-6.0)
[2019-02-25 06:56] LABS: ALANINE AMINOTRANSFERASE 33 U/L (12-78); ALBUMIN 3.6 g/dL (3.4-5.0); ALKALINE PHOSPHATASE 99 U/L (46-116); ASPARTATE AMINOTRANSFERASE 20 U/L (15-37); BILIRUBIN,TOTAL 0.8 mg/dL (0.2-1.0); CALCIUM, SERUM 8.7 mg/dL (8.5-10.1); CARBON DIOXIDE 26 mmol/L (21-32); CHLORIDE 104 mmol/L (98-107); CREATININE 1.1 mg/dL (0.6-1.3); GLUCOSE 78 mg/dL (74-106); MAGNESIUM 1.8 mg/dL (1.8-2.4); PHOSPHORUS 2.8 mg/dL (2.5-4.9); POTASSIUM 3.2 mmol/L (3.5-5.1); SODIUM SERUM 141 mmol/L (136-145); TOTAL PROTEIN, SERUM 7.1 g/dL (6.4-8.2); UREA NITROGEN, BLOOD 14 mg/dL (7-18)
[2019-02-25 07:08] LABS: CHOLESTEROL 109 mg/dL (<200); HDL CHOLESTEROL 44 mg/dL (40-60); LDL 61 mg/dL (0-99); TRIGLYCERIDES 46 mg/dL (30-150)
--- NOTE | 2019-02-25 07:35 | NUR ---
TELE/RN NOTES PT. IS IN BED ASLEEP EASILY AROUSABLE DURING CARE.RESPIRATIONS EVEN AND UNLABORED ON ROOM AIR. NO SOB, RESPIRATORY DISTRESS OR COMPLAINTS OF PAIN NOTED AT THIS TIME. PT. WITH EXTERNAL OXYGEN FURNACE OPERATOR PRESENT AND INTACT. PT. WITH RIGHT AC 20 GAUGE PERIPHERAL IV PRESENT, PATENT AND INTACT ADMINISTERING TO PT. NS @ 75 ML/HR. ALL PT. NEEDS MET. BED LOCKED AND IN LOWEST POSITION, SIDE RAILS UP X2, CALL LIGHT WITHIN REACH, WILL CONTINUE TO MONITOR
[2019-02-25 07:44] LABS: FREE PSA 0.45 ng/mL (0.00-45); PROSTATE SPECIFIC ANTIGEN SCR 1.02 ng/mL (0.00-4.00)
[2019-02-25 08:00] VITALS: BP 150/88
[2019-02-25] MEDS: POTASSIUM CHLORIDE 20 MEQ TAB.PRT.SR PO SCH ×3 (08:09→10:00)
[2019-02-25] MEDS: CHOLECALCIFEROL 1,000 UNIT TABLET (VIT D3) PO SCH (08:10)
[2019-02-25] MEDS: ASPIRIN 81 MG TAB.CHEW PO SCH (08:10)
[2019-02-25] MEDS: CLOPIDOGREL BISULFATE 75 MG TABLET PO SCH (08:10)
[2019-02-25] MEDS: AMIODARONE HCL 200 MG TABLET PO SCH ×3 (08:16→17:21)
[2019-02-25] MEDS: AMLODIPINE BESYLATE 10 MG TABLET PO SCH (08:16)
[2019-02-25 16:00] VITALS: BP 153/91
[2019-02-25] MEDS: SIMVASTATIN 20 MG TABLET PO SCH (17:21)
[2019-02-25] MEDS: IV NS 0.9% 1,000 ML IV PRN (17:21)
--- NOTE | 2019-02-25 18:37 | NUR ---
VACCINE SPECIALIST NOTES PT. IS IN BED AWAKE ABLE TO MAKE NEEDS KNOWN.RESPIRATIONS EVEN AND UNLABORED ON ROOM AIR. NO SOB, RESPIRATORY DISTRESS OR COMPLAINTS OF PAIN NOTED AT THIS TIME. PT. WITH RIGHT AC 20 GAUGE PERIPHERAL IV PRESENT, PATENT AND INTACT ADMINISTERING TO PT. NS @ 75 ML/HR. ALL PT. NEEDS MET. BED LOCKED AND IN LOWEST POSITION, SIDE RAILS UP X2, CALL LIGHT WITHIN REACH, WILL CONTINUE TO MONITOR AND ENDORSE TO NEXT SHIFT FOR CONTINUITY OF CARE
[2019-02-25 20:00] VITALS: BP 150/84
--- NOTE | 2019-02-25 20:00 | NUR ---
WEAPONS ENGINEER OPENING NOTE RECEIVED PATIENT IN BED. A/O X 4. TOLERATING ROOM AIR. RESPIRATIONS EVEN AND UNLABORED. DENIES SOB. DENIES PAIN AT THIS TIME. IV ACCESS RIGHT AC GAUGE 20. EXTERNAL TELE MONITOR READS SINUS PIETRO 58. IN NO APPARENT DISTRESS AT THIS TIME. BED IS LOW AND LOCKED. CALL LIGHT WITHIN REACH. WILL CONTINUE TO MONITOR.
[2019-02-25] MEDS: TAMSULOSIN 0.4 MG CAP.SR.24H PO SCH (21:25)
[2019-02-26 00:49] VITALS: BP 119/64
[2019-02-26 04:00] VITALS: BP 149/87
[2019-02-26 05:00] VITALS: BP_SYST 149; BP_SYST 157; BP_SYST 159; BP_DIAS 100; BP_DIAS 87; BP_DIAS 92
[2019-02-26 06:32] LABS: BASOPHILS % (AUTO) 0.5 % (0.0-2.0); HEMATOCRIT 48 % (39-51); HEMOGLOBIN 16.4 g/dL (13.5-17.5); LYMPHOCYTES # (AUTO) 0.6 /CMM (0.8-4.8); LYMPHOCYTES % (AUTO) 14.4 % (20.0-44.0); MEAN CORPUSCULAR HGB CONC 34 g/dl (31.0-36.0); MEAN CORPUSCULAR VOLUME 93 fL (80-96); MONOCYTES # (AUTO) 0.5 /CMM (0.1-1.30); MONOCYTES % (AUTO) 11.7 % (2.0-12.0); NEUTROPHILS % (AUTO) 69.4 % (43.0-81.0); PLATELET COUNT (AUTO) 212 /CMM (150-450); RED BLOOD CELL COUNT(AUTO) 5.13 MIL/uL (4.5-6.0); WHITE BLOOD COUNT (AUTO) 4.4 K/uL (4.3-11.0)
--- NOTE | 2019-02-26 06:46 | NUR ---
TERRITORY SALES REPRESENTATIVE CLOSING NOTE PATIENT ID RESTING IN BED. A/O X3. TOLERATING ROOM AIR. RESPIRATIONS EVEN AND UNLABORED. DENIES SOB. DENIES PAIN AT THIS TIME. EXTERNAL TELE MONITOR READS 65 SR WITH 1ST DEGREE AV BLOCK AND PVC. IV ACCESS RIGHT AC GAUGE 20 RUNNING NS@75ML/HR. BED IS LOW AND LOCKED. SIDE RAILS UP X2. CALL LIGHT WITHIN REACH. WILL ENDORSE TO DAY SHIFT FOR DARREN.
[2019-02-26 07:13] LABS: ALANINE AMINOTRANSFERASE 33 U/L (12-78); ALBUMIN 3.7 g/dL (3.4-5.0); ALKALINE PHOSPHATASE 104 U/L (46-116); ASPARTATE AMINOTRANSFERASE 18 U/L (15-37); BILIRUBIN,TOTAL 0.7 mg/dL (0.2-1.0); CALCIUM, SERUM 8.7 mg/dL (8.5-10.1); CARBON DIOXIDE 27 mmol/L (21-32); CHLORIDE 103 mmol/L (98-107); GLUCOSE 81 mg/dL (74-106); MAGNESIUM 1.9 mg/dL (1.8-2.4); PHOSPHORUS 2.8 mg/dL (2.5-4.9); POTASSIUM 3.3 mmol/L (3.5-5.1); SODIUM SERUM 139 mmol/L (136-145); TOTAL PROTEIN, SERUM 7.5 g/dL (6.4-8.2); UREA NITROGEN, BLOOD 8 mg/dL (7-18)
--- NOTE | 2019-02-26 07:57 | NUR ---
RN NOTES GOT AN ORDER FROM DR. RICARDO INSTEAD OF NPO , WE'LL PUT PT ON NPO EXCEPT MEDS, ORDER NOTED AND CARRIED OUT
[2019-02-26 08:00] VITALS: BP 150/82
[2019-02-26] MEDS ORDERED: REGADENOSON 0.4 MG/5 ML DISP.SYRIN IVP ONE (08:00)
--- NOTE | 2019-02-26 08:00 | NUR ---
GENERAL MANAGER ORACLE DATA CLOUD NOTES PATIENT TAKEN TO RADIOLOGY FOR [facility]. PATIENT ALERT, ORIENTED X3. NO SOB OR ACUTE DISTRESS NOTED. PATIENT NPO DUE TO [facility]. WILL CONTINUE TO MONITOR.
--- NOTE | 2019-02-26 09:18 | NUR ---
MS RN NOTES PATIENT RETURNED FROM RADIOLOGY PART ONE OF [facility] COMPLETE, ORDERED BREAKFAST TRAY FOR PATIENT. WILL CONTINUE TO MONITOR.
[2019-02-26] MEDS: ASPIRIN 81 MG TAB.CHEW PO SCH (09:32)
[2019-02-26] MEDS: CLOPIDOGREL BISULFATE 75 MG TABLET PO SCH (09:32)
[2019-02-26] MEDS: AMLODIPINE BESYLATE 10 MG TABLET PO SCH (09:32)
[2019-02-26] MEDS: CHOLECALCIFEROL 1,000 UNIT TABLET (VIT D3) PO SCH (09:32)
[2019-02-26] MEDS: AMIODARONE HCL 200 MG TABLET PO SCH ×3 (09:33→17:58)
[2019-02-26] MEDS ORDERED: POTASSIUM CHLORIDE 20 MEQ TAB.PRT.SR PO SCH (11:30)
[2019-02-26] MEDS: SIMVASTATIN 20 MG TABLET PO SCH (17:57)
--- NOTE | 2019-02-26 18:54 | NUR ---
MS RN NOTES PATIENT IN BED RESTING NO SOB OR ACUTE DISTRESS NOTED. ALL DUE MEDICATIONS ADMINISTERED. ALL NEEDS MET. WILL ENDORSE CARE TO PM SHIFT.
--- NOTE | 2019-02-26 19:30 | NUR ---
MS RN OPENING NOTE RECIEVED PATIENT IN BED. A/O X4. TOLERATING ROOM AIR. RESPIRATIONS EVEN AND UNLABORED. DENIES SOB. DENIES PAIN AT THIS TIME. IV ACCESS IN RFA RUNNING TKO@5ML/HR FOR PATIENTS COMFORT. BED IS LOW AND LOCKED. CALL LIGHT WITHIN REACH. WILL CONTINUE TO MONITOR.
[2019-02-26 20:00] VITALS: BP 154/86
[2019-02-26] MEDS: TAMSULOSIN 0.4 MG CAP.SR.24H PO SCH (21:04)
[2019-02-27 05:18] VITALS: BP_SYST 142; BP_SYST 147; BP_SYST 148; BP_DIAS 85; BP_DIAS 90; BP_DIAS 91
--- NOTE | 2019-02-27 06:34 | NUR ---
MS RN NOTE PATIENT IS RESTING IN BED. A/O X4. TOLERATING ROOM AIR WITH O2 SAT OF 98%. RESPIRATIONS ARE EVEN AND UNLABORED. NO SOB NOTED. DENIES PAIN AT THIS TIME. IV ACCESS IN LFA RUNNING TKO@5ML/HR. ALL NURSING NEEDS PROVIDED. IN NO APPARENT DISTRESS AT THIS TIME. BED IS LOW AND LOCKED, SIDE RAILS UP X2. CALL LIGHT WITHIN REACH. WILL ENDORSE TO DAY SHIFT FOR DARREN.
[2019-02-27 06:37] LABS: CALCIUM, SERUM 8.6 mg/dL (8.5-10.1); CARBON DIOXIDE 24 mmol/L (21-32); CHLORIDE 102 mmol/L (98-107); CREATININE 1.1 mg/dL (0.6-1.3); GLUCOSE 134 mg/dL (74-106); POTASSIUM 3.2 mmol/L (3.5-5.1); SODIUM SERUM 137 mmol/L (136-145); UREA NITROGEN, BLOOD 12 mg/dL (7-18)
[2019-02-27 08:00] VITALS: BP 142/85
[2019-02-27] MEDS ORDERED: POTASSIUM CHLORIDE 20 MEQ TAB.PRT.SR PO ONE (08:00)
--- NOTE | 2019-02-27 08:00 | NUR ---
MS RN NOTES PATIENT IN BED RESTING ALERT, ORIENTED X4. NO SOB OR ACUTE DISTRESS NOTED. PATIENT DENIES ANY PAIN OR DISCOMFORT. PERIPHERAL IV INTACT PATENT. BED IN LOW LOCKED POSITION. CALL LIGHT WITHIN REACH. WILL CONTINUE TO MONITOR.
[2019-02-27] MEDS: AMLODIPINE BESYLATE 10 MG TABLET PO SCH (08:52)
[2019-02-27] MEDS: ASPIRIN 81 MG TAB.CHEW PO SCH (08:52)
[2019-02-27] MEDS: CLOPIDOGREL BISULFATE 75 MG TABLET PO SCH (08:52)
[2019-02-27] MEDS: CHOLECALCIFEROL 1,000 UNIT TABLET (VIT D3) PO SCH (08:52)
[2019-02-27] MEDS: AMIODARONE HCL 200 MG TABLET PO SCH ×2 (08:53→13:39)
[2019-02-27 13:39] VITALS: BP 145/87
--- NOTE | 2019-02-27 14:10 | NUR ---
MS RN NOTES PATIENT DISCHARGED HOME. PATIENT ALERT, ORIENTED X4. DENIES ANY PAIN OR DISCOMFORT. DISCHARGE TEACHING PROVIDED VERBALIZED UNDERSTANDING. PATIENT INSTRUCTED TO FOLLOW UP WITH DR. RICARDO IN 1 WEEK. INFORMATION PROVIDED. DISCHARGE PROTOCOL FOLLOWED. DISCHARGE INSTRUCTIONS PROVIDED, VERBALIZED UNDERSTANDING. PERIPHERAL IV REMOVED. ID BAND ALSO REMOVED. ALL BELONGINGS ACCOUNTED FOR, BELONGING LIST SIGNED. PATIENT ESCORTED TO CAR BY MATERIAL PLANNING ANALYST.
== END 2019-02-27 14:10 | disposition home or self-care (01) | DRG 682 ==
LOC: ER 11:21 → TELE 14:29 → MED 02-26 09:09
PROVIDERS: ADMIT Nurse Practitioner Acute Care; ATTEND Nurse Practitioner Acute Care
DX: N17.0 Acute kidney failure with tubular necrosis (principal); I21.A1 Myocardial infarction type 2; I69.351 Hemiplegia and hemiparesis following cerebral infarction affecting right dominant side; I47.1 Supraventricular tachycardia; G90.8 Other disorders of autonomic nervous system; I25.2 Old myocardial infarction; I25.10 Atherosclerotic heart disease of native coronary artery without angina pectoris; E78.5 Hyperlipidemia, unspecified; E87.6 Hypokalemia; E86.9 Volume depletion, unspecified; I11.0 Hypertensive heart disease with heart failure; Z79.899 Other long term (current) drug therapy; Z79.82 Long term (current) use of aspirin; I50.9 Heart failure, unspecified; I25.84 Coronary atherosclerosis due to calcified coronary lesion; N40.1 Benign prostatic hyperplasia with lower urinary tract symptoms; R35.0 Frequency of micturition; D72.819 Decreased white blood cell count, unspecified
CPT/HCPCS: 36415; 70450-TC; 71045-TC; 80048-TC; 80053-TC; 80061-TC; 80305; 81000-TC; 83735-TC; 84100-TC; 84153-TC; 84154-TC; 84443-TC; 84484-TC; 85025-TC; 86140-TC; 86431-TC; 86706; 86803; 87081-TC; 87340; 87806; 93307-TC; 93880-TC; 97116-TC; 97530-TC; A9502; G0378; J2785; J7030; J7040

== ENCOUNTER 2019-07-03 23:14 | Inpatient (IN) | payer MEDICARE, OTHER ==
[~2019-07-03] VITALS: Ht 172.7 cm; Wt 81.6 kg
[~2019-07-03 23:14] MED LIST changes: -FOLI1TAB16 PO; +HYDR-4075 PO; -OXYB10TA2 PO; +SIMV-46 PO; -SIMV20TA6 PO; -SULI150T PO; +TAMS-12 PO
--- NOTE | 2019-07-03 23:20 | NUR ---
PT BIBSELF C/O "FEELING COLD" AND SHIVERING. PT STATES HE HAS BEEN SLEEPING IN HIS CAR. PT STATES HE MIGHT HAVE HAD A FEVER WITHIN PAST FEW DAYS, PT WAS AFEBRILE ON ARRIVAL. PT DENIES CP, SOB, COUGH. PT AAOX4. RESPIRATIONS EVEN AND UNLABORED. SKIN WARM AND INTACT. AMBULATORY WITH STEADY GAIT. VITAL SIGNS STABLE. NO ACUTE DISTRESS NOTED AT THIS TIME. WILL CONTINUE TO MONITOR.
[2019-07-03 23:39] LABS: APPEARANCE,URINE Clear (CLEAR); BILIRUBIN,URINE Negative (NEGATIVE); BLOOD, URINE Trace-intact Ery/uL (NEGATIVE); COLOR,URINE Yellow (YELLOW); KETONES,URINE Negative (NEGATIVE); LEUKOCYTE ESTERASE ,URINE Small (NEGATIVE); NITRITE, URINE Negative (NEGATIVE); PH,URINE 5.5 (5.0-8.0); PROTEIN,URINE 30 mg/dl (NEGATIVE); UGLUCOSE Negative (NEGATIVE); UROBILINOGEN,URINE 0.2 EU/dL (0.2)
[2019-07-03 23:53] LABS: BACTERIA,URINE None seen /HPF (None Seen); RBC,URINE 0-2 /HPF (0-2); SQUAMOUS EPITHELIAL CELL,UR Rare /HPF (None Seen)
[2019-07-04] MEDS ORDERED: IV NS 0.9% 1,000 ML BAG IV ONE
[2019-07-04 00:25] LABS: BASOPHILS # (AUTO) 0.1 /CMM (0.0-0.2); BASOPHILS % (AUTO) 1.2 % (0.0-2.0); EOSINOPHILS % (AUTO) 0.9 % (0.0-6.0); HEMATOCRIT 49 % (39-51); HEMOGLOBIN 16.2 g/dL (13.5-17.5); LYMPHOCYTES # (AUTO) 0.5 /CMM (0.8-4.8); LYMPHOCYTES % (AUTO) 4.1 % (20.0-44.0); MEAN CORPUSCULAR HGB CONC 33 g/dl (31.0-36.0); MEAN CORPUSCULAR VOLUME 96 fL (80-96); MONOCYTES # (AUTO) 0.4 /CMM (0.1-1.30); MONOCYTES % (AUTO) 3.6 % (2.0-12.0); NEUTROPHILS # (AUTO) 11.2 /CMM (1.8-8.9); NEUTROPHILS % (AUTO) 90.2 % (43.0-81.0); PLATELET COUNT (AUTO) 152 /CMM (150-450); WHITE BLOOD COUNT (AUTO) 12.4 K/uL (4.3-11.0)
[2019-07-04] MEDS ORDERED: CT SWABBABLE VALVE TRANS SET 1 EA INFUS.SET MC ONE (00:31)
[2019-07-04] MEDS ORDERED: IOHEXOL-350 100 ML VIAL IV ONE (00:31)
[2019-07-04 00:32] LABS: CALCIUM, SERUM 9.8 mg/dL (8.5-10.1); CARBON DIOXIDE 27 mmol/L (21-32); CHLORIDE 98 mmol/L (98-107); CREATININE 1.5 mg/dL (0.6-1.3); GLUCOSE 123 mg/dL (74-106); POTASSIUM 3.6 mmol/L (3.5-5.1); SODIUM SERUM 134 mmol/L (136-145); UREA NITROGEN, BLOOD 29 mg/dL (7-18)
[2019-07-04] MEDS ORDERED: IV NS 0.9% 0 ML IV ONE (00:32)
[2019-07-04 00:41] LABS: ALANINE AMINOTRANSFERASE 25 U/L (12-78); ALBUMIN 3.8 g/dL (3.4-5.0); ALKALINE PHOSPHATASE 100 U/L (46-116); ASPARTATE AMINOTRANSFERASE 17 U/L (15-37); B-TYPE NATRIURETIC PEPTIDE 149 PG/ML (0-125); BILIRUBIN,DIRECT 0.2 mg/dL (0.0-0.2); BILIRUBIN,TOTAL 1.3 mg/dL (0.2-1.0); TOTAL PROTEIN, SERUM 7.9 g/dL (6.4-8.2)
[2019-07-04] MEDS ORDERED: CEFTRIAXONE 1 G in IV D5W 50 ML IV ONE (01:00)
--- NOTE | 2019-07-04 01:11 | NUR ---
CALLED [facility] FOR PANEL ADMISSION
[2019-07-04] MEDS ORDERED: CEFTRIAXONE 1GM BAG (ER ONLY) 50 ML IV ONE (01:14)
--- NOTE | 2019-07-04 01:15 | NUR ---
[facility] RAD[facility]OLOGY [facility]
--- NOTE | 2019-07-04 01:17 | NUR ---
BED ASSIGNMENT 323-2
[2019-07-04] MEDS ORDERED: Z GUARD REMEDY 2 OZ OINT TP PRN (02:00)
[2019-07-04] MEDS ORDERED: HYDROCODONE/APAP 5/325MG 1 EACH TABLET PO PRN (02:00)
[2019-07-04] MEDS ORDERED: MAG HYDROX/AL HYDROX/SIMETH 30 ML UDC PO PRN (02:00)
[2019-07-04] MEDS ORDERED: ONDANSETRON HCL/PF 4 MG/2 ML VIAL IVP PRN (02:00)
[2019-07-04] MEDS ORDERED: MAGNESIUM HYDROXIDE 30 ML UDC PO PRN (02:00)
[2019-07-04] MEDS ORDERED: ZOLPIDEM TARTRATE 5 MG TABLET PO PRN (02:00)
--- NOTE | 2019-07-04 02:06 | NUR ---
GAVE REPORT TO AUSTIN ESTRADA FOR DARREN
[2019-07-04] MEDS ORDERED: ENOXAPARIN SODIUM 40 MG/0.4 ML DISP.SYRIN SQ ONE (02:30)
[2019-07-04 03:10] VITALS: BP 147/87
--- NOTE | 2019-07-04 03:10 | NUR ---
MS RN ADMITTING NOTES RECEIVED PT FROM ER VIA [facility] IN STABLE CONDITION. PT A/O X3 AND ABLE TO MAKE NEEDS KNOWN. RESPIRATIONS EVEN AND UNLABORED WITH NO S/S OF ACUTE DISTRESS OR SOB NOTED. NO COMPLAINTS OF PAIN AT THIS TIME. PT NOTED WITH RAC #20G PATENT AND INTACT AND SL. ORIENTED PT TO UNIT AND STAFF. SAFETY MEASURES IN PLACE WITH BED IN LOWEST LOCKED POSITION WITH SIDE RAILS UP X2. CALL LIGHT WITHIN REACH. WILL CONTINUE TO MONITOR.
--- NOTE | 2019-07-04 03:15 | NUR ---
[facility]
[2019-07-04] MEDS: IV NS 0.9% 1,000 ML IV PRN (03:58)
[2019-07-04] MEDS: ACETAMINOPHEN 325 MG TABLET PO PRN ×2 (04:19→20:58)
--- NOTE | 2019-07-04 07:01 | NUR ---
MS RN NOTES PT IN BED RESTING AND ABLE TO MAKE NEEDS KNOWN. PT A/O X3 AND ABLE TO MAKE NEEDS KNOWN. RESPIRATIONS EVEN AND UNLABORED WITH NO S/S OF ACUTE DISTRESS OR SOB NOTED THROUGHOUT SHIFT. NO COMPLAINTS OF PAIN AT THIS TIME. PT NOTED WITH RAC #20G PATENT AND INTACT AND INFUSING NS @75CC/HR. SAFETY MEASURES IN PLACE WITH BED IN LOWEST LOCKED POSITION WITH SIDE RAILS UP X2. CALL LIGHT WITHIN REACH. WILL ENDORSE TO ONCOMING NURSE FOR DARREN.
[2019-07-04] MEDS ORDERED: MULT-24 PO (07:43)
[2019-07-04] MEDS ORDERED: ATOR10TA PO (07:43)
[2019-07-04] MEDS ORDERED: FOLI0.4T2 PO (07:44)
[2019-07-04 08:00] VITALS: BP 133/73
--- NOTE | 2019-07-04 08:03 | NUR ---
MS/RN Opening note Patient is resting in bed, A/O x3, showing no signs of acute distress, saturating >95% on RA. IV RAC #20g is clean and intact running NS @75ml/hr. Patient has no complaints of pain at this time. Bed is in lowest position, side rails x3 in upright position, call light is within reach and patient is aware of how to call for assistance when needed. Will continue with plan of care.
[2019-07-04 09:00] VITALS: BP 133/73
[2019-07-04] MEDS ORDERED: CEFTRIAXONE 1GM BAG (ER ONLY) 1 GM/50 ML PIGGYBACK IV ONE (09:00)
[2019-07-04 16:00] VITALS: BP 140/73
--- NOTE | 2019-07-04 18:21 | NUR ---
MS/RN Closing note Patient is resting in bed, A/O x4, showing no signs of acute distress, saturating >95% on RA. IV RAC #20g is clean and intact running NS @75ml/hr. Patient showered this shift, linen change done. All patient needs met, all due meds given. Bed is in lowest position, side rails x2 in upright position, call light is within reach and patient is aware of how to call for assistance when needed. Will endorse to sailing officer.
[2019-07-04 19:30] VITALS: BP 130/71
--- NOTE | 2019-07-04 19:35 | NUR ---
MS RN NOTES PATIENT IN BED, ALERT AND ORIENTED X 4. BREATHING EVEN AND UNLABORED ON ROOM AIR. DENIES ACUTE RESPIRATORY DISTRESS, NO ACUTE PAIN. IV ON R AX #20G RUNNING NS AT 75ML/HR. IV IS CLEAN DRY AND INTACT. SHOWS NO REDNESS, NO INFILTRATION. SAFETY PRECAUTION IN PLACE. BED IN LOWEST POSITION, LOCKED, AND CALL LIGHT KEPT WITHIN REACH. WILL CONTINUE TO MONITOR.
[2019-07-04 20:00] VITALS: BP 130/71
[2019-07-04] MEDS: CEFTRIAXONE 1 G in IV D5W 50 ML IV SCH (22:08)
--- NOTE | 2019-07-05 06:45 | NUR ---
MS RN NOTES PATIENT IN BED ASLEEP ALERT AND ORIENTED X 4. BREATHING EVEN AND UNLABORED ON ROOM AIR. DENIES ACUTE RESPIRATORY DISTRESS, NO ACUTE PAIN. IV ON R AX #20G RUNNING NS AT 75ML/HR. IV IS CLEAN DRY AND INTACT. SHOWS NO REDNESS, NO INFILTRATION. ALL DUE MEDICATIONS GIVEN. SAFETY PRECAUTION IN PLACE. BED IN LOWEST POSITION, LOCKED, AND CALL LIGHT KEPT WITHIN REACH. WILL ENDORSE TO ONCOMING NURSE.
[2019-07-05 07:15] LABS: BASOPHILS % (AUTO) 0.4 % (0.0-2.0); EOSINOPHILS % (AUTO) 2.2 % (0.0-6.0); HEMATOCRIT 43 % (39-51); HEMOGLOBIN 14.4 g/dL (13.5-17.5); LYMPHOCYTES # (AUTO) 0.4 /CMM (0.8-4.8); LYMPHOCYTES % (AUTO) 5.2 % (20.0-44.0); MEAN CORPUSCULAR HGB CONC 34 g/dl (31.0-36.0); MEAN CORPUSCULAR VOLUME 95 fL (80-96); MONOCYTES # (AUTO) 0.9 /CMM (0.1-1.30); MONOCYTES % (AUTO) 11.3 % (2.0-12.0); NEUTROPHILS # (AUTO) 6.8 /CMM (1.8-8.9); NEUTROPHILS % (AUTO) 80.9 % (43.0-81.0); RED BLOOD CELL COUNT(AUTO) 4.48 MIL/uL (4.5-6.0); WHITE BLOOD COUNT (AUTO) 8.4 K/uL (4.3-11.0)
[2019-07-05 07:46] LABS: CALCIUM, SERUM 8.2 mg/dL (8.5-10.1); MAGNESIUM 1.8 mg/dL (1.8-2.4); PHOSPHORUS 1.7 mg/dL (2.5-4.9); POTASSIUM 3.5 mmol/L (3.5-5.1)
--- NOTE | 2019-07-05 07:49 | NUR ---
MS/RN Opening note, Patient received resting in bed, A/O x4, showing no signs of acute distress or SOB, breathing is even and unlabored, saturating >95% on RA. Iv line in the RAC #20 s/l is clean and patent. Bed is in lowest position, side rails x2 in upright position, fall and safety precautions in place. Call light is within reach and patient is aware of how to call for assistance when needed. Will continue with plan of care.
[2019-07-05 07:51] LABS: PLATELET COUNT (AUTO) 121 /CMM (150-450)
[2019-07-05 08:00] VITALS: BP_SYST 135; BP_DIAS 48; BP_DIAS 68
[2019-07-05] MEDS: ENOXAPARIN SODIUM 40 MG/0.4 ML DISP.SYRIN SQ SCH (08:43)
[2019-07-05] MEDS: ACETAMINOPHEN 325 MG TABLET PO PRN ×2 (08:48→15:52)
[2019-07-05] MEDS ORDERED: K PHOS NEUTRAL 250 MG TABLET PO ONE (09:30)
--- NOTE | 2019-07-05 15:40 | NUR ---
MS/RN note Contacted Dr. Fields to do med-recon for patient's home meds. Awaiting for response.
[2019-07-05 16:00] VITALS: BP_SYST 137; BP_SYST 158; BP_DIAS 39; BP_DIAS 89; BP_DIAS 91
--- NOTE | 2019-07-05 18:52 | NUR ---
MS/RN CLOSING note, Patient received resting in bed, A/O x4, showing no signs of acute distress or SOB, breathing is even and unlabored, saturating >95% on RA. Iv line in the RAC #20 is clean and patent running NS @ 75ml/hr. Notified MD to do med-recon for patient's home meds, awaiting for response. Patient kept clean and dry throughout shift, all patient needs met, all due meds given. Bed is in lowest position, side rails x2 in upright position, fall and safety precautions in place. Call light is within reach and patient is aware of how to call for assistance when needed. Will endorse to shift production supervisor.
--- NOTE | 2019-07-05 19:30 | NUR ---
MS RN OPENING NOTES PATIENT AWAKE AND RESTING IN BED. ALERT & ORIENTED X 4. NO S/S OF ACUTE RESPIRATORY DISTRESS. NO COMPLAINTS OF SOB OR PAIN. IV ON RIGHT AC, SIZE 20, INTACT & PATENT WITH NS RUNNING AT 75 ML/HR. BED SET IN LOWEST POSITION & LOCKED, SUPINE POSITION, CALL LIGHT WITHIN REACH. WILL CONTINUE TO MONITOR.
[2019-07-05 20:00] VITALS: BP 149/71
[2019-07-05 20:44] VITALS: BP 149/71
[2019-07-05] MEDS: CEFTRIAXONE 1 G in IV D5W 50 ML IV SCH (22:34)
[2019-07-06 06:16] LABS: CALCIUM, SERUM 8.4 mg/dL (8.5-10.1); CREATININE 1.1 mg/dL (0.6-1.3); POTASSIUM 3.2 mmol/L (3.5-5.1)
[2019-07-06 06:37] LABS: BASOPHILS % (AUTO) 0.6 % (0.0-2.0); EOSINOPHILS % (AUTO) 0.9 % (0.0-6.0); HEMATOCRIT 43 % (39-51); HEMOGLOBIN 14.6 g/dL (13.5-17.5); LYMPHOCYTES # (AUTO) 0.3 /CMM (0.8-4.8); LYMPHOCYTES % (AUTO) 12.3 % (20.0-44.0); MEAN CORPUSCULAR HGB CONC 34 g/dl (31.0-36.0); MEAN CORPUSCULAR VOLUME 94 fL (80-96); MONOCYTES # (AUTO) 0.6 /CMM (0.1-1.30); MONOCYTES % (AUTO) 21.1 % (2.0-12.0); NEUTROPHILS # (AUTO) 1.7 /CMM (1.8-8.9); NEUTROPHILS % (AUTO) 65.1 % (43.0-81.0); PLATELET COUNT (AUTO) 136 /CMM (150-450); RED BLOOD CELL COUNT(AUTO) 4.57 MIL/uL (4.5-6.0); WHITE BLOOD COUNT (AUTO) 2.6 K/uL (4.3-11.0)
--- NOTE | 2019-07-06 06:49 | NUR ---
MS RN CLOSING NOTES PATIENT SLEEPING IN BED. EASY TO AWAKEN. ALERT & ORIENTED X 4. ON ROOM AIR. NO S/S OF ACUTE RESPIRATORY DISTRESS AND NO COMPLAINTS OF PAIN AT THIS TIME. IV ON RIGHT AC, SIZE 20, INTACT & PATENT, NS RUNNING AT 75CC/HR. BED LOCKED, SIDE RAILS X2, SUPINE POSITION, CALL LIGHT WITHIN REACH. WILL ENDORSE TO DAY SHIFT NURSE OT FOLLOW PLAN OF CARE
--- NOTE | 2019-07-06 07:10 | NUR ---
MS RN OPENING NOTES RECEIVED PATIENT IN BED, ASLEEP. AROUSABLE TO VERBAL AND TACTILE STIMULI. HOB. ELEVATED. DENIES ANY C/O PAIN NOR DISCOMFORT AT THIS TIME. RT AC# 20 INTACT AND PATENT INFUSING IVF ORDERED. BED IN LOWEST POSITION, LOCKED. BED ALARM ON. CALL LIGHT WITHIN REACH.
[2019-07-06 08:00] VITALS: BP 143/81
[2019-07-06 08:04] LABS: EOSINOPHILS % (MANUAL) 1 % (0-4); LYMPHOCYTES % (MANUAL) 12 % (16-48); MONOCYTES % (MANUAL) 22 % (0-11.0); NEUTROPHILS % (MANUAL) 65 (42-76)
[2019-07-06] MEDS: ENOXAPARIN SODIUM 40 MG/0.4 ML DISP.SYRIN SQ SCH (08:24)
[2019-07-06] MEDS: ACETAMINOPHEN 325 MG TABLET PO PRN (09:31)
[2019-07-06] MEDS: IV NS 0.9% 1,000 ML IV PRN (10:07)
[2019-07-06] MEDS ORDERED: CEPH-570 PO (10:23)
[2019-07-06] MEDS ORDERED: POTASSIUM CHLORIDE 20 MEQ TAB.PRT.SR PO SCH (12:00)
[2019-07-06] MEDS: POTASSIUM CHLORIDE 20 MEQ TAB.PRT.SR PO SCH ×2 (12:17→17:26)
--- NOTE | 2019-07-06 18:12 | NUR ---
MS RN CLOSING/DISCHARGE NOTES ALERT AND ORIENTED X4. NO SOB. DENIES ANY C/O PAIN NOR DISCOMFORT. DISCHARGE INSTRUCTIONS AND PACKET GIVEN TO PATIENT ALONG WITH EDUCATION, PATIENT VERBALIZES UNDERSTANDING. ALL BELONGINGS ACCOUNTED FOR. IV ACCESS CATHETER REMOVED WITGH TIP INTACT. NO S/S OF BLEEDING OBSERVED DURING THE SHIFT. DENIES ANY C/O PAIN NOR DISCOMFORT AT THIS TIME. PATIENT PICKED UP BY FRIEND AND LEFT IN STABLE CONDITION.
== END 2019-07-06 18:15 | disposition home or self-care (01) | DRG 690 ==
LOC: ER 23:19 → MED 07-04 01:27
DX: N39.0 Urinary tract infection, site not specified (principal); I69.351 Hemiplegia and hemiparesis following cerebral infarction affecting right dominant side; N40.0 Benign prostatic hyperplasia without lower urinary tract symptoms; N28.1 Cyst of kidney, acquired; E78.5 Hyperlipidemia, unspecified; I10 Essential (primary) hypertension; Z79.899 Other long term (current) drug therapy; Z79.82 Long term (current) use of aspirin; Z59.0 Homelessness; I25.10 Atherosclerotic heart disease of native coronary artery without angina pectoris; N20.0 Calculus of kidney; B96.20 Unspecified Escherichia coli [E. coli] as the cause of diseases classified elsewhere
CPT/HCPCS: 36415; 71045-TC; 71250-TC; 80048-TC; 80061-TC; 80076-TC; 81000-TC; 83605-TC; 83735-TC; 83880; 84100-TC; 84484-TC; 85025-TC; 87040-TC; 87081-TC; 87086-TC; 87186-TC; 97116-TC; 97530-TC; G0378; J0696; J1650; J2405; J7030; J7050; J7060; Q9967

== ENCOUNTER 2020-04-26 08:42 | Inpatient (IN) | payer MEDICARE, OTHER ==
[~2020-04-26] VITALS: Ht 170.2 cm; Wt 74.4 kg
[~2020-04-26 08:42] MED LIST changes: +ATOR10TA PO; +CEPH-570 PO; +FOLI0.4T2 PO; -HYDR-4075 PO; +MULT-24 PO; -SIMV-46 PO
--- NOTE | 2020-04-26 08:42 | NUR ---
PT BIB SELF C/O GEN WEAKNESS FOR 3 DAYS. PT IS AAOX4, NOT IN RESPIRATORY DISTRESS, HOOKED TO FIELD CROP HARVEST WORKER, KEPT RESTED AND COMFORTABLE. WILL CONTINUE TO MONITOR.
--- NOTE | 2020-04-26 08:56 | NUR ---
AT BEDSIDE FOR EVAL.
[2020-04-26] MEDS ORDERED: BIMA2.5D5 EACHEYE (09:10)
--- NOTE | 2020-04-26 09:10 | NUR ---
IV LINE ESTABLISHED BLOOD DRAWN AND SENT TO LAB.
--- NOTE | 2020-04-26 09:43 | NUR ---
STRAWHAT SIZER AT BEDSIDE FOR XRAY.
--- NOTE | 2020-04-26 09:51 | NUR ---
COVID SPECIMEN OBTAINED AND SENT TO LAB.
[2020-04-26 10:08] LABS: BASOPHILS # (AUTO) 0.1 /CMM (0.0-0.2); EOSINOPHILS % (AUTO) 4.4 % (0.0-6.0); HEMATOCRIT 54 % (39-51); HEMOGLOBIN 18.1 g/dL (13.5-17.5); LYMPHOCYTES % (AUTO) 24.4 % (20.0-44.0); MEAN CORPUSCULAR HGB CONC 33 g/dl (31.0-36.0); MEAN CORPUSCULAR VOLUME 97 fL (80-96); MONOCYTES # (AUTO) 0.6 /CMM (0.1-1.30); MONOCYTES % (AUTO) 15.1 % (2.0-12.0); NEUTROPHILS # (AUTO) 2.3 /CMM (1.8-8.9); NEUTROPHILS % (AUTO) 54.1 % (43.0-81.0); PLATELET COUNT (AUTO) 176 /CMM (150-450); RED BLOOD CELL COUNT(AUTO) 5.59 MIL/uL (4.5-6.0); WHITE BLOOD COUNT (AUTO) 4.3 K/uL (4.3-11.0)
[2020-04-26 10:37] LABS: CALCIUM, SERUM 9.7 mg/dL (8.5-10.1); CARBON DIOXIDE 23 mmol/L (21-32); CHLORIDE 100 mmol/L (98-107); GLUCOSE 79 mg/dL (74-106); POTASSIUM 3.5 mmol/L (3.5-5.1); SODIUM SERUM 135 mmol/L (136-145); UREA NITROGEN, BLOOD 12 mg/dL (7-18)
[2020-04-26 10:42] LABS: CHOLESTEROL 127 mg/dL (<200); HDL CHOLESTEROL 53 mg/dL (40-60); LDL 72 mg/dL (0-99); TRIGLYCERIDES 67 mg/dL (30-150)
[2020-04-26 10:43] LABS: ALANINE AMINOTRANSFERASE 30 U/L (12-78); ALBUMIN 4.2 g/dL (3.4-5.0); ALKALINE PHOSPHATASE 97 U/L (46-116); ASPARTATE AMINOTRANSFERASE 25 U/L (15-37); BILIRUBIN,DIRECT 0.2 mg/dL (0.0-0.2); BILIRUBIN,TOTAL 0.8 mg/dL (0.2-1.0); TOTAL PROTEIN, SERUM 8.6 g/dL (6.4-8.2)
--- NOTE | 2020-04-26 10:45 | NUR ---
paged epic for panel admission, waiting for MD to call back
--- NOTE | 2020-04-26 11:20 | NUR ---
ROOM GIVEN 117-1
--- NOTE | 2020-04-26 11:25 | NUR ---
REPORT GIVEN TO AUSTIN GILMAN FOR DARREN.
[2020-04-26] MEDS ORDERED: ASPIRIN 325 MG TABLET ONE (11:27)
[2020-04-26] MEDS ORDERED: ASPIRIN 325 MG TABLET PO ONE (11:30)
--- NOTE | 2020-04-26 12:30 | NUR ---
PROSPECTING DRILLER HELPER NOTES RECEIVED PATIENT FROM ER WITH DIAGNOSIS GENERAL WEAKNESS UNDER CARE OF DOCTOR ENGEL, BELONGINGS CHECKED, HOSPITAL ORIENTATION DONE, VITAL SIGNS TAKEN, SAFETY MEASURES IMPLEMENTED, BED IN LOWEST AND LOCKED POSITION, CALL LIGHT WITHIN REACH, HEP LOCK RIGHT HAND INTACT AND FLUSHES WELL, PLAN OF CARE DISCUSSED WITH PATIENT. DOCTOR ENGEL WILL PLACE ADMISSION ORDERS. DVT PUMPS APPLIED.
[2020-04-26 12:49] VITALS: BP 156/91
[2020-04-26] MEDS: AMLODIPINE BESYLATE 10 MG TABLET PO SCH (13:24)
[2020-04-26] MEDS: ATORVASTATIN 10 MG TABLET PO SCH (13:24)
[2020-04-26] MEDS: ENOXAPARIN SODIUM 40 MG/0.4 ML DISP.SYRIN SQ SCH (13:37)
[2020-04-26] MEDS: ASPIRIN 81 MG TAB.CHEW PO SCH (13:41)
--- NOTE | 2020-04-26 13:44 | NUR ---
TILTING HEAD BAND SAWYER NOTE WALK WITH PHYSICAL THERAPY AND WALKER.
--- NOTE | 2020-04-26 14:40 | NUR ---
telephone sex worker note 2d echo at bedside will f\u
--- NOTE | 2020-04-26 14:50 | NUR ---
Auto Battery Builder consult requested by Hannah Barr MD per stroke protocol. Patient is alert and oriented x4. Patient confirmed date of and address on face sheet. Per patient, he is currently residing with his cousin in [place] because there is more space in that home. Per patient, did not want to be in quarantine in a small space. Per patient, will likely return to his cousin's house in [place] unless doctor recommends something different. Patient currently reports receiving social security approximately $395 a month. Patient requested application for food stamps and this SW will provide that information to the patient. Patient does not report mental health diagnosis. Patient reports rarely drinking alcohol, per patient he can drink one alcoholic beverage months apart. Patient denies drug and cigarette use. Patient denies auditory and visual hallucinations. Patient denies suicidal and homicidal ideation. SW conducted PHQ9 on this patient. Patient scored a one. Patient provided with stroke empowerment information. SW to remain available for all needs regarding this patient.
--- NOTE | 2020-04-26 15:09 | NUR ---
SW provided the following information to the patient regarding food stamps. Website: https://[facility].gov/en/food/calfresh.html Eligibility: Receive CalWORKS or General Relief, Have low-income or no income, Have limited property, Are a [place] Citizen or a legal resident, Are an immigrant that meet certain criteria, Receive Supplemental Security Income/State Supplementary Payment (SSI/SSP). You can apply by phone. Call the Customer Service Center ([facility]) to have an application mailed to you. Call [facility]) Apply On-Line with Your Benefits Now The easier and quickest way to apply for CalFresh is online at Your Benefits Now!
--- NOTE | 2020-04-26 15:47 | NUR ---
ariane rn note dr cartagena seen patient on face time ,mri consent obtained by patient will cont to monitor
[2020-04-26 16:00] VITALS: BP 140/78
--- NOTE | 2020-04-26 16:31 | NUR ---
telecommunications clerk note taken to mri as ordered
[2020-04-26] MEDS: BENAZEPRIL HCL 20 MG TABLET PO SCH (17:24)
--- NOTE | 2020-04-26 17:53 | NUR ---
telegraph office route aide note ekg done sb with 1 st degree block no c\o chest pain or discomfort will cont to yoselin repirted resuklt to dr farrar no new order given at this time
[2020-04-26] MEDS ORDERED: BLOOD SUGAR DIAGNOSTIC 1 EACH STRIP IN SCH (18:00)
[2020-04-26] MEDS: BLOOD SUGAR DIAGNOSTIC 1 EACH STRIP IN SCH ×2 (18:17→21:25)
--- NOTE | 2020-04-26 18:23 | NUR ---
telegraph dispatcher note having dinner able to eat self ,not in distress
--- NOTE | 2020-04-26 19:15 | NUR ---
RN NOTES RECEIVED PT ON BED AWAKE A/O X4 ON O2 VIA NC SPO2 98% NO PAIN COMPLAINT, GCS 15, TELE MONITOR READS SINUS PIETRO 60'S WITH AV BLOCK NOTED, WITH RIGHT HAND IV # 20 PATENT AND FLUSHED CLEAN DRY AND INTACT, SAFETY MEASURE MAINTAINED BED ON LOWEST POSITION AND LOCKED SIDE RAILS UP X2 CALL LIGHT WITHIN REACH WILL CONT TO MONITOR
[2020-04-26 20:00] VITALS: BP 139/80
--- NOTE | 2020-04-26 20:25 | NUR ---
2020 RADIOLOGY CALLED REGARDING MRI BRAIN RESULT, REQUESTING TO SPEAK WITH ATTENDING PHYSICIAN, LOCAL DELIVERY TRUCK DRIVER MD NUMBER PROVIDED.
[2020-04-26] MEDS: CARVEDILOL 3.125 MG TABLET PO SCH (21:00)
--- NOTE | 2020-04-26 21:00 | NUR ---
RN NOTES CARDEVILOL NOT GIVEN PT HR IS 54, CHARGE NURSE AWARE
[2020-04-26] MEDS: TAMSULOSIN 0.4 MG CAP.SR.24H PO SCH (21:11)
--- NOTE | 2020-04-26 21:35 | NUR ---
2134 PULVERIZER FEEDER MABLE IN THE UNIT AND SAID HE'S AWARE OF MRI BRAIN RESULT.
--- NOTE | 2020-04-26 21:37 | NUR ---
RN NOTES TALK TO DR. AKINS REGARDING THE MRI RESULT, NO NEW ORDER MADE
[2020-04-26] MEDS: LATANOPROST EYE DROP 0.005% 2.5 ML BOTTLE EACHEYE SCH (22:00)
[2020-04-26] MEDS ORDERED: BIMATOPROST 2.5 ML DROPS OP SCH (22:00)
[2020-04-27] VITALS: BP 144/79
[2020-04-27 04:00] VITALS: BP 145/86
--- NOTE | 2020-04-27 07:15 | NUR ---
RN NOTES PT ON BED ASLEEP NO SIGN AND SYMPTOMS OF RESPIRATORY DISTRESS NO COMPLAINT OF PAIN TELE MONITOR READS SINUS BRADYCARDIA HR 40S-50S WITH 1ST DEGREE AV BLOCK, NO SIGNIFICANT CHANGES ON CONDITION NOTED ALL NEEDS ATTENDED SAFETY MEASURE MAINTAINED BED ON LOWEST POSITION AND LOCKED SIDE RAILS UP X2 CALL LIGHT WITHIN REACH WILL ENDORSED TO AM SHIFT NURSE
--- NOTE | 2020-04-27 07:20 | NUR ---
RN OPENING NOTE: Patient received in bed. Awake, alert and oriented x4. Able to make needs known. On room air and tolerating well. No SOB and not in respiratory distress. No pain noted nor reported. IV site clean, dry, patent and intact. Patient to be continually assessed for current stroke episode. Call light in reach. Bed locked, low and at semi-noyola's position. Side rails upx3. Safety ensured and observed. Will continue to monitor.
[2020-04-27] MEDS: BLOOD SUGAR DIAGNOSTIC 1 EACH STRIP IN SCH ×4 (07:30→21:44)
--- NOTE | 2020-04-27 07:44 | NUR ---
refused Blood Sugar check, no s/sx of Hypoglycemia noted.
[2020-04-27 08:00] VITALS: BP 158/86
[2020-04-27] MEDS: ASPIRIN 81 MG TAB.CHEW PO SCH (08:47)
[2020-04-27] MEDS: BENAZEPRIL HCL 20 MG TABLET PO SCH ×2 (08:47→17:25)
[2020-04-27] MEDS: ATORVASTATIN 10 MG TABLET PO SCH (08:48)
[2020-04-27] MEDS: AMLODIPINE BESYLATE 10 MG TABLET PO SCH (08:48)
[2020-04-27] MEDS: MULTIVITAMINS,THERAGRAN 1 UDTAB TABLET PO SCH (08:48)
[2020-04-27] MEDS: CHOLECALCIFEROL 1,000 UNIT TABLET (VIT D3) PO SCH (08:48)
[2020-04-27] MEDS: CARVEDILOL 3.125 MG TABLET PO SCH ×2 (08:49→20:29)
--- NOTE | 2020-04-27 09:00 | NUR ---
rn note: Patient on Lovenox 40mg SQ Q daily as Antithrombotic therapy as verified with Dr. Gupta.
[2020-04-27 12:00] VITALS: BP 146/59
[2020-04-27] MEDS: ENOXAPARIN SODIUM 40 MG/0.4 ML DISP.SYRIN SQ SCH (12:40)
[2020-04-27 16:00] VITALS: BP 133/78
--- NOTE | 2020-04-27 19:28 | NUR ---
RN CLOSING NOTE: Patient remains in bed. Awake, alert and oriented x4. Tele monitor showing sinus rhythm in the 50-60s range. Able to make needs known. On room air and tolerating well. No SOB and not in respiratory distress. No pain noted nor reported. IV site clean, dry, patent and intact. Patient assessed and with no deficits noted for current episode of stroke. Currently antithrombotic therapy and tolerating well. Seen by Dr. Candy morton on shift. Call light in reach. Bed locked, low and at semi-noyola's position. Side rails upx3. Safety ensured and observed. Due medications given. Treatment given as ordered. Endorsed to oncoming shift for DARREN.
--- NOTE | 2020-04-27 19:30 | NUR ---
RN NOTE RECEIVED PATIENT IN BED, A0 X 4. PATIENT IN NO S/SX OF ACUTE DISTRESS AT THIS TIME. NO SOB NOTED. PATIENT'S BREATHING IS EVEN AND UNLABORED, SATURATING >95% ON ROOM AIR. PATIENT ON TELE MONITOR READING SR, HR IS 60. NOTED IV SITE AT R HAND G20, PATENT AND FLUSHING WELL, NO S/S OF INFECTION OR INFILTRATION. PATIENT IS AMBULATORY WITH CANE, SLIGHT WEAKNESS NOTED, STANDBY ASSISTANCE PROVIDED, PATIENT VERBALIZES HE FEELS LESS WEAK COMPARED DURING ADMISSION, URINAL AT BEDSIDE WITH CLEAR JD URINE NOTED. SAFETY IMPLEMENTED PER PROTOCOL. CALL LIGHT WITHIN REACH OF THE PATIENT. WILL CONTINUE TO MONITOR AND REASSESS FOR ANY CHANGES.
[2020-04-27 20:00] VITALS: BP 151/79
[2020-04-27] MEDS: TAMSULOSIN 0.4 MG CAP.SR.24H PO SCH (21:43)
[2020-04-27] MEDS: LATANOPROST EYE DROP 0.005% 2.5 ML BOTTLE EACHEYE SCH (22:10)
[2020-04-28] VITALS: BP 148/69
[2020-04-28 04:00] VITALS: BP 143/79
[2020-04-28] MEDS: BLOOD SUGAR DIAGNOSTIC 1 EACH STRIP IN SCH ×2 (06:48→12:45)
--- NOTE | 2020-04-28 07:10 | NUR ---
PT ASLEEP IN BED W HOB ELEVATED. RESPIRATIONS EVEN AND UNLABORED. SKIN WARM AND FLUSHED. PT CANE REMAINS AT BEDSIDE WITHIN REACH. R HAND G20 SL AND INTACT. DRESSING INTACT. PT HAS NO SIGNS OF DISTRESS. TELE SINUS PIETRO 50-60. WILL MONITOR VS THROUGHOUT THE DAY AND ASSESS NEURO STATUS Q2H. WILL MONITOR FOR CHANGES IN VS AND MENTAL STATUS. WILL CONTINUE PLAN OF CARE ORDERED. ALL HOSPITAL POLICY SAFETY PRECAUTIONS IMPLEMENTED.
--- NOTE | 2020-04-28 07:19 | NUR ---
RN CLOSING NOTE PATIENT REMAINS IN ROOM. NO SIGNS OF RESPIRATORY DISTRESS. SATURATING >95% ON ROOM AIR. SINUS PIETRO AT 50'S. SAFETY MEASURES IMPLEMENTED, BED IN LOWEST POSITION, LOCKED, SIDE RAILS UP, CALL LIGHT WITHIN REACH. FALL PRECAUTIONS MAINTAINED. ALL NEEDS AND ORDERS ADDRESSED DURING THE SHIFT. ALL DUE MEDS ADMINISTERED ORDERED & SCHEDULED, PATIENT TOLERATED WELL. PATIENT KEPT CLEAN AND COMFORTABLE WITHIN THE SHIFT. ENDORSED TO GAUTAM AVILA FOR CONTINUITY OF CARE.
[2020-04-28 08:00] VITALS: BP 130/76
[2020-04-28] MEDS: ASPIRIN 81 MG TAB.CHEW PO SCH (09:12)
[2020-04-28] MEDS: AMLODIPINE BESYLATE 10 MG TABLET PO SCH (09:12)
[2020-04-28] MEDS: CARVEDILOL 3.125 MG TABLET PO SCH (09:13)
[2020-04-28] MEDS: MULTIVITAMINS,THERAGRAN 1 UDTAB TABLET PO SCH (09:13)
[2020-04-28] MEDS: ATORVASTATIN 10 MG TABLET PO SCH (09:13)
[2020-04-28] MEDS: BENAZEPRIL HCL 20 MG TABLET PO SCH ×2 (09:13→17:49)
[2020-04-28] MEDS: CHOLECALCIFEROL 1,000 UNIT TABLET (VIT D3) PO SCH (09:13)
[2020-04-28] MEDS ORDERED: IV NS 0.9% 250 ML IV ONE (09:32)
[2020-04-28] MEDS ORDERED: IOHEXOL-350 100 ML VIAL IV ONE (09:32)
--- NOTE | 2020-04-28 09:50 | NUR ---
PT TAKEN TO XRAY FOR CTA VIA WHEELCHAIR.
--- NOTE | 2020-04-28 11:00 | NUR ---
PT RECEIVED FROM [facility] VIA WHEELCHAIR. SITTING IN CHAIR. UNDERSTANDS TO USE CALL LIGHT FOR ASSISTANCE TO AMBULATE TO BED.
[2020-04-28] MEDS: ENOXAPARIN SODIUM 40 MG/0.4 ML DISP.SYRIN SQ SCH (12:37)
[2020-04-28 16:00] VITALS: BP 133/82
[2020-04-28 17:49] VITALS: BP 133/76
--- NOTE | 2020-04-28 19:25 | NUR ---
PT TAKEN TO [facility] BY PARAMEDICS. PT STABLE AND ALL BELONGINGS BROUGHT W HIM. PT DENIED CONCERNS OR QUESTIONS. IV TAKEN OUT AND SO SIGNS OF BLEEDING. REPORT GIVEN TO PARAMEDICS VERBALLY. REPORT GIVEN TO [facility] VIA PHONE. PT REMAINED STABLE THROUGHOUT THE DAY AND UNDERSTAND DC INSTRUCTION. ALL ORDERS IMPLEMENTED. PT TOLERATED ALL WELL.
== END 2020-04-28 19:13 | DRG 65 ==
LOC: ER 08:47 → MEDSG1 11:32 → TELE1 19:54 → MEDSG1 04-28 07:59
PROVIDERS: ADMIT Internal Medicine; ATTEND Internal Medicine
DX: I63.9 Cerebral infarction, unspecified (principal); I69.351 Hemiplegia and hemiparesis following cerebral infarction affecting right dominant side; I10 Essential (primary) hypertension; N40.0 Benign prostatic hyperplasia without lower urinary tract symptoms; E78.5 Hyperlipidemia, unspecified; Z87.442 Personal history of urinary calculi; R29.700 NIHSS score 0; R40.2412 Glasgow coma scale score 13-15, at arrival to emergency department; I25.10 Atherosclerotic heart disease of native coronary artery without angina pectoris; I70.0 Atherosclerosis of aorta; Z79.82 Long term (current) use of aspirin; Z79.899 Other long term (current) drug therapy
CPT/HCPCS: 36415; 70450-TC; 70496-TC; 70551-TC; 71045-TC; 80048-TC; 80061-TC; 80076-TC; 82962-TC; 84484-TC; 85025-TC; 85730-TC; 87081-TC; 92526; 92611-TC; 93307-TC; 93880-TC; 97112-TC; 97116-TC; 97530-TC; C9803; G0378; J1650; J7050; Q9967

== ENCOUNTER 2021-10-27 11:40 | Emergency (ER) | payer OTHER ==
[~2021-10-27] VITALS: Ht 172.7 cm; Wt 72.6 kg
[~2021-10-27 11:40] MED LIST changes: +AMLO-213 PO; -AMLO10TA7 PO; +BIMA2.5D5 EACHEYE; -CEPH-570 PO; -FOLI0.4T2 PO
--- NOTE | 2021-10-27 12:09 | NUR ---
TO ER BED 8 FOR MD DEVRIES,MONITORED,CHANGED TO HOSPITAL WN,READY FOR MD DEVRIES
[2021-10-27 12:42] LABS: BASOPHILS % (AUTO) 0.8 % (0.0-2.0); HEMATOCRIT 46 % (39-51); HEMOGLOBIN 16.1 g/dL (13.5-17.5); LYMPHOCYTES % (AUTO) 24.5 % (20.0-44.0); MEAN CORPUSCULAR HGB CONC 35 g/dl (31.0-36.0); MEAN CORPUSCULAR VOLUME 95 fL (80-96); MONOCYTES # (AUTO) 0.5 K/uL (0.1-1.30); MONOCYTES % (AUTO) 10.5 % (2.0-12.0); NEUTROPHILS # (AUTO) 2.5 K/uL (1.8-8.9); NEUTROPHILS % (AUTO) 59.2 % (43.0-81.0); PLATELET COUNT (AUTO) 191 K/uL (150-450); RED BLOOD CELL COUNT(AUTO) 4.89 MIL/uL (4.5-6.0); WHITE BLOOD COUNT (AUTO) 4.3 K/uL (4.3-11.0)
[2021-10-27 12:54] LABS: ALANINE AMINOTRANSFERASE 39 U/L (12-78); ALBUMIN 3.9 g/dL (3.4-5.0); ALKALINE PHOSPHATASE 72 U/L (46-116); ASPARTATE AMINOTRANSFERASE 26 U/L (15-37); BILIRUBIN,DIRECT 0.2 mg/dL (0.0-0.2); BILIRUBIN,TOTAL 0.7 mg/dL (0.2-1.0); CALCIUM, SERUM 10.1 mg/dL (8.5-10.1); CARBON DIOXIDE 27 mmol/L (21-32); CHLORIDE 101 mmol/L (98-107); CREATININE 1.5 mg/dL (0.6-1.3); GLUCOSE 99 mg/dL (74-106); POTASSIUM 3.7 mmol/L (3.5-5.1); SODIUM SERUM 136 mmol/L (136-145); TOTAL PROTEIN, SERUM 8.1 g/dL (6.4-8.2); UREA NITROGEN, BLOOD 13 mg/dL (7-18)
[2021-10-27 14:57] VITALS: BP 139/85
--- NOTE | 2021-10-27 14:57 | NUR ---
Patient discharged to home in stable condition. Written and verbal after care instructions given. Patient verbalizes understanding of instruction.
== END 2021-10-27 14:57 | disposition home or self-care (01) ==
LOC: ER 11:55
DX: R53.1 Weakness (principal); R00.1 Bradycardia, unspecified; R94.31 Abnormal electrocardiogram [ECG] [EKG]; I44.0 Atrioventricular block, first degree; R40.4 Transient alteration of awareness; I10 Essential (primary) hypertension; E78.5 Hyperlipidemia, unspecified; Z86.73 Personal history of transient ischemic attack (TIA), and cerebral infarction without residual deficits; Z79.899 Other long term (current) drug therapy; Z98.890 Other specified postprocedural states; Z79.82 Long term (current) use of aspirin
CPT/HCPCS: 36415; 70450-TC; 71045-TC; 80048-TC; 80076-TC; 83735-TC; 84484-TC; 85025-TC